=== PATIENT | male | born 1960 | race Caucasian/White ===

== ENCOUNTER → 2023-03-28 13:36 | Outpatient (REF) | payer OTHER, SELFPAY | LOC: RAD 13:36 | PROVIDERS: ATTENDING PHYSICIAN Internal Medicine Cardiovascular Disease; FAMILY PHYSICIAN Internal Medicine; REFERRING PHYSICIAN Specialist | DX: R09.89 Other specified symptoms and signs involving the circulatory and respiratory systems (principal) | CPT/HCPCS: 93975 ==

== ENCOUNTER 2023-06-20 08:05 | Outpatient (REF) | payer OTHER, SELFPAY ==
[2023-06-20] VITALS (18 sets, daily range): BP systolic 67–163; BP diastolic 70–101
[2023-06-20 08:35] LABS: % Eosinophils 7.8 % (0-6); % Immature Granulocytes 0.4 % (0-0.5); % Lymphocytes 22.4 % (20.5-51.1); % Monocytes 12.9 % (1.7-9.3); % Neutrophils 55.5 % (42.2-75.2); Absolute Basophils 0.1 10^3/uL (0-0.2); Absolute Eosinophils 0.6 10^3/uL (0-0.7); Absolute Lymphocytes 1.6 10^3/uL (1.2-3.4); Absolute Monocytes 0.9 10^3/uL (0.1-0.6); Absolute Neutrophils 3.9 10^3/uL (1.4-6.5); Hematocrit 39.1 % (39.0-52.0); Hemoglobin 12.6 g/dL (13.0-18.0); Mean Corp Hgb Conc. 32.2 g/dL (33.0-37.0); Mean Corpuscular Hgb 25.8 pg (27.0-31.0); Mean Platelet Volume 10.1 fL (7.4-10.4); Nucleated Red Blood Cells % 0 % (-); Platelet Count 231 10^3/uL (130-400); Red Blood Cell Count 4.89 10^6/uL (4.70-6.10); Red Cell Dist. Width 14.9 % (11.5-14.5); White Blood Cell Count 7.1 10^3/uL (4.8-10.8)
[2023-06-20 08:46] LABS: Blood Urea Nitrogen 48 mg/dl (9-20); Calcium 9.2 mg/dl (8.4-10.2); Carbon Dioxide 27 mmol/L (22-30); Chloride 105 mmol/L (98-107); Glucose 125 mg/dl (70-99); Potassium 4.8 mmol/L (3.5-5.1); Sodium 138 mmol/L (135-145); eGFR 31.32
[2023-06-20] MEDS: CATAPRES 0.100000000000000006 MG PO (08:56)
[2023-06-20] MEDS: NSS (PRESERVATIVE FREE) 0.25 ML IV (09:55)
[2023-06-20] MEDS: ATIVAN 0.5 MG IV (09:55)
[2023-06-20 11:56] LABS: Glucose - Point of Care 155 mg/dl (70-99)
[2023-06-20 13:45] LABS: Glucose - Point of Care 229 mg/dl (70-99)
[2023-06-20 16:00] LABS: Hematocrit 39.2 % (39.0-52.0); Hemoglobin 12.5 g/dL (13.0-18.0)
== END 2023-06-20 17:25 | disposition home or self-care (01) ==
LOC: RADI 08:05
PROVIDERS: Radiology Vascular & Interventional Radiology; ATTENDING PHYSICIAN Specialist; FAMILY PHYSICIAN Internal Medicine
DX: E11.22 Type 2 diabetes mellitus with diabetic chronic kidney disease (principal); R80.9 Proteinuria, unspecified; I12.9 Hypertensive chronic kidney disease with stage 1 through stage 4 chronic kidney disease, or unspecified chronic kidney disease; N18.2 Chronic kidney disease, stage 2 (mild)
CPT/HCPCS: 36415; 50200; 76942; 80048; 82962; 85014; 85018; 85025; 85610; 99152; 99153

== ENCOUNTER 2023-06-26 18:17 | Inpatient (IN) | payer OTHER, SELFPAY ==
[2023-06-26] VITALS (29 sets, daily range): BP systolic 99–154; BP diastolic 64–123; BMI 31.0
[2023-06-26] MEDS: ZOFRAN 4 MG IV (14:04)
[2023-06-26] MEDS: SUBLIMAZE 50 MCG IV ×2 (14:04→20:09)
[2023-06-26 14:13] LABS: % Basophils 0.7 % (0-2); % Eosinophils 4.8 % (0-6); % Immature Granulocytes 0.1 % (0-0.5); % Lymphocytes 27.5 % (20.5-51.1); % Monocytes 10.3 % (1.7-9.3); % Neutrophils 56.6 % (42.2-75.2); Absolute Basophils 0.1 10^3/uL (0-0.2); Absolute Eosinophils 0.3 10^3/uL (0-0.7); Absolute Lymphocytes 1.8 10^3/uL (1.2-3.4); Absolute Monocytes 0.7 10^3/uL (0.1-0.6); Absolute Neutrophils 3.8 10^3/uL (1.4-6.5); Hematocrit 36.3 % (39.0-52.0); Hemoglobin 12.2 g/dL (13.0-18.0); Mean Corp Hgb Conc. 33.6 g/dL (33.0-37.0); Mean Corpuscular Hgb 25.8 pg (27.0-31.0); Mean Corpuscular Volume 76.9 fL (80.0-94.0); Mean Platelet Volume 9.8 fL (7.4-10.4); Nucleated Red Blood Cells % 0 % (-); Platelet Count 290 10^3/uL (130-400); Red Blood Cell Count 4.72 10^6/uL (4.70-6.10); Red Cell Dist. Width 14.5 % (11.5-14.5); White Blood Cell Count 6.7 10^3/uL (4.8-10.8)
--- NOTE | 2023-06-26 14:20 | ED.GENMED ---
History of Present Illness
<Devon Salinas PA-C - Last Filed: 06/26/23 16:09>
General
Chief Complaint: Flank Pain
Source: patient and ambulance crew
Time Seen by Provider: 06/26/23 14:00
Travel History
Have you had any contact with someone who has COVID-19?: No
Do you have any symptoms of coronavirus? Fever > 100 degrees, chills, cough, shortness of breath, sore throat, loss of taste or smell, muscle aches, or headache?: No
History of Present Illness
History of Present Illness:
62-year-old male with past atrial fibrillation, CAD, hypertension, hyperlipidemia, diabetes, chronic kidney disease, status post right renal biopsy from this past Tuesday coming in to the emergency department via EMS for evaluation of sudden pain in
his right flank accompanied with worsening nausea. Due to the severity of pain patient was given 8 mg of morphine and route to the emergency department which she states took his pain from a 10 to about an 8 but still appears quite uncomfortable.
EMS noted diaphoresis and upon arrival to the ER nausea. Patient states following his biopsy he really did not have much pain and that this is different than any pain that he is experienced in the past. Denies any chest pain, shortness of breath,
palpitations, vomiting, bowel changes, urinary symptoms.
Past History
<MARINO Sorenson Last Filed: 06/26/23 16:09>
Past History
ED Past Medical History: Arrthythmia, HTN, Hypercholesterolemia, IDDM, Renal failure (Chronic kidney disease) and Other (Severe COVID with arts, respiratory failure, cardiogenic shock January 2022)
ED Past Surgical History: Appendectomy and Orthopedic
Social History
Tobacco: Non-smoker
Alcohol: Other
Drug: None
Personal:
Living: with family
Employment: Other
Family History
Family History: Other
Review of Systems
<MARINO Sorenson Filed: 06/26/23 16:09>
Review of Systems
All Other Systems: ROS reviewed and negative except as documented in HPI and ROS
Phy Exam
<Devon Salinas PA-C - Last Filed: 06/26/23 16:09>
Physical Exam
Physical Exam:
GENERAL: Alert , appears in significant pain, grunting but speaking full sentences, diaphoretic
EYE: clear conjunctiva
NECK: Supple
ENT: o/p clr, mmm.
CARDIAC: Regular rate and rhythm .
LUNGS: Clear breath sounds bilaterally, no acute respiratory distress, no wheezes/rales/rhonchi
ABDOMEN: Soft, without focal tenderness, no r/g, no cvat
NEUROLOGICAL: Alert and oriented
SKIN: Warm and dry, skin intact.
MUSCULOSKELETAL: No edema, well perfused.
PSYCH: Normal and appropriate interaction.
Scores
<Devon Salinas PA-C - Last Filed: 06/26/23 16:09>
Heart Failure Risk
Heart Failure Risk Score: Not Applicable
Heart Score for Chest Pain Patients
STEMI patient?: Not applicable
Withdrawal Assessment of Alcohol
Withdrawal Assessment Completed?: Not applicable
Course
<Devon Salinas PA-C - Last Filed: 06/26/23 16:09>
Orders/Labs/Results
Orders:
Orders
06/26/23 13:58
Electrocardiogram (*1) Urgent
Reason for Study: Abdominal Pain
EKG- Treatment ONCE
06/26/23 14:01
Fentanyl Citrate/Pf [Sublimaze] 100 mcg .ROUTE .STK-MED ONE
Ondansetron Injectable [Zofran] 4 mg .ROUTE .STK-MED ONE
06/26/23 14:02
CT Abd/pel Without Iv Or Oral Urgent
Comment:
Reason For Exam: right flank pain, recent biopsy
Fentanyl Citrate/Pf [Sublimaze] 50 mcg IV NOW STA
Ondansetron Injectable [Zofran] 4 mg IV NOW STA
06/26/23 14:05
CMP [Comprehensive Metabolic Panel] Urgent
Complete Blood Count/With Diff Urgent
06/26/23 14:27
PTT Urgent
Prothrombin Time Urgent
06/26/23 15:18
0.9% Sodium Chloride 1000 ml [Nss] 1,000 ml IV BOLUS
06/26/23 15:53
Prothrombin Complex(Pcc),Human [Kcentra] 2,184 unit Empty Viaflex Container 100 ml [Viaflex Empty Container] 80 ml IV NOW
06/26/23 15:54
Fentanyl Citrate/Pf [Sublimaze] 50 mcg IV NOW STA
Abnormal Lab Results
06/26/23 06/26/23
14:05 16:00
Hgb 12.2 L g/dL
(13.0-18.0)
Hct 36.3 L %
(39.0-52.0)
MCV 76.9 L fL
(80.0-94.0)
MCH 25.8 L pg
(27.0-31.0)
Absolute Monos (auto) 0.7 H 10^3/uL
(0.1-0.6)
Monocytes % 10.3 H %
(1.7-9.3)
Carbon Dioxide 21 L mmol/L
(22-30)
BUN 40 H mg/dl
(9-20)
Creatinine 2.4 H mg/dL
(0.7-1.3)
Glucose 172 H mg/dl
(70-99)
POC Glucose 186 H mg/dl
(70-99)
06/26/23 14:05
06/26/23 14:05
Vital Signs
Initial and Last Documented VS:
Initial Vital Signs
Pulse Resp Pulse Ox
82 24 100
06/26/23 13:59 06/26/23 13:59 06/26/23 13:59
Last Documented Vital Signs
Temp Pulse Resp BP Pulse Ox
97.7 F 77 13 99/73 99
06/26/23 15:58 06/26/23 15:58 06/26/23 15:58 06/26/23 15:58 06/26/23 15:58
Auto Design Checker consulted with Physician
Auto Design Checker consulted with physician?: Yes
Name of Physician Consulted: Adam
<Santana Cheung, - Last Filed: 06/26/23 15:19>
Orders/Labs/Results
Orders:
Orders
06/26/23 13:58
Electrocardiogram (*1) Urgent
Reason for Study: Abdominal Pain
EKG- Treatment ONCE
06/26/23 14:01
Fentanyl Citrate/Pf [Sublimaze] 100 mcg .ROUTE .STK-MED ONE
Ondansetron Injectable [Zofran] 4 mg .ROUTE .STK-MED ONE
06/26/23 14:02
CT Abd/pel Without Iv Or Oral Urgent
Comment:
Reason For Exam: right flank pain, recent biopsy
Fentanyl Citrate/Pf [Sublimaze] 50 mcg IV NOW STA
Ondansetron Injectable [Zofran] 4 mg IV NOW STA
06/26/23 14:05
CMP [Comprehensive Metabolic Panel] Urgent
Complete Blood Count/With Diff Urgent
06/26/23 14:27
PTT Urgent
Prothrombin Time Urgent
06/26/23 15:18
0.9% Sodium Chloride 1000 ml [Nss] 1,000 ml IV BOLUS
06/26/23 15:53
Prothrombin Complex(Pcc),Human [Kcentra] 2,184 unit Empty Viaflex Container 100 ml [Viaflex Empty Container] 80 ml IV NOW
06/26/23 15:54
Fentanyl Citrate/Pf [Sublimaze] 50 mcg IV NOW STA
Abnormal Lab Results
06/26/23 06/26/23
14:05 16:00
Hgb 12.2 L g/dL
(13.0-18.0)
Hct 36.3 L %
(39.0-52.0)
MCV 76.9 L fL
(80.0-94.0)
MCH 25.8 L pg
(27.0-31.0)
Absolute Monos (auto) 0.7 H 10^3/uL
(0.1-0.6)
Monocytes % 10.3 H %
(1.7-9.3)
Carbon Dioxide 21 L mmol/L
(22-30)
BUN 40 H mg/dl
(9-20)
Creatinine 2.4 H mg/dL
(0.7-1.3)
Glucose 172 H mg/dl
(70-99)
POC Glucose 186 H mg/dl
(70-99)
06/26/23 14:05
06/26/23 14:05
Vital Signs
Initial and Last Documented VS:
Initial Vital Signs
Pulse Resp Pulse Ox
82 24 100
06/26/23 13:59 06/26/23 13:59 06/26/23 13:59
Last Documented Vital Signs
Temp Pulse Resp BP Pulse Ox
97.7 F 77 13 99/73 99
06/26/23 15:58 06/26/23 15:58 06/26/23 15:58 06/26/23 15:58 06/26/23 15:58
<Devon Salinas PA-C - Last Filed: 06/26/23 16:09>
MDM/Problems Addressed
Differential Diagnosis Includes:
Retroperitoneal hemorrhage, kidney stone, dissection, AAA, postoperative pain
MDM/Problems Addressed:
62-year-old male presenting emergency department for evaluation of right-sided flank pain of sudden onset. Pain minimally controlled with 8 mg of morphine. Now nauseous. Will treat with 50 mcg of fentanyl and 4 mg Zofran. Patient will be sent
for a stat CT to rule out any retroperitoneal bleed. Reassessment and disposition following
Chronic conditions affecting care: Previous abdomnial surgery
Acute Exacerbation and/or Progression of Chronic Illness: Previous abdomnial surgery
<Devon Salinas PA-C - Last Filed: 06/26/23 16:09>
*Pulse Oximetry
Patient hypoxic: no
*Critical Care Note
Total Time (30-74mins, 75-104mins- exclusive of procedures): 30
comment:
Critical care statement: A total of 30 minutes of critical care time was provided for this patient. This includes management of unstable vital signs, evaluation of the patient at bedside, reviewing the patient's pertinent medical records, discussion
with consultants, review of old EKGs and review of pertinent medical records. This time with separate from time utilized to perform the aforementioned documented procedures
Data Reviewed
Review of Other/Old Records Reveals: Labs and Records
<Devon Salinas PA-C - Last Filed: 06/26/23 16:09>
Patient Management
Discussion with other providers: Hospitalist, Litigation Specialist and Radiologist
Escalation/DeEscalation of care consider admission/obs:
Spoke to radiology about initial CT of concern for right-sided retroperitoneal bleeding. They do agree with our assessment. We spoke to interventional radiology who reviewed the scans and will come to the ER to see the patient. We are holding on
CTA of the abdomen and pelvis due to patient's renal function. Decision was ultimately made to reverse patient's Eliquis with [facility]. Hospitalist team is aware and accepts for continued evaluation and treatment. Patient is remaining
hemodynamically stable.
ED Attending Note
<Devon Salinas PA-C - Last Filed: 06/26/23 16:09>
-
Portions of this chart may have been created with voice recognition software.� Occasional wrong word or��sound alike� substitutions may have occurred due to the inherent limitations of voice recognition software.
<Santana Cheung DO - Last Filed: 06/26/23 15:19>
ED Attending Note
Patient seen and examined by attending physician: Yes
I performed the substantive portion of visit, reviewed & personally made and approve the management plan that is documented in note by myself or ALBIN.: Yes
Discharge Plan
Departure
Patient Disposition: Admit
Date of Disposition: 06/26/23
Time of Disposition: 15:48
Presentation/result/management discussed w/ accepting MD/: Hospitalist
Discharge Problem:
Retroperitoneal hemorrhage
Prescriptions:
No Action
rosuvastatin 20 MG tablet
20 mg PO DAILY@0600
SPS (with sorbitol) 15-20 gram/60 mL suspension
60 ml PO HS
Novolin 70/30 U-100 Insulin 100 unit/mL (70-30) Suspension
17 - 18 sliding scale dose SC DAILY@0600,1800
furosemide 40 mg tablet
40 mg PO DAILY@0600
Eliquis 5 mg Tablet
5 mg PO BID@0600,1800
lisinopril 20 mg tablet
20 mg PO DAILY@0600
metoprolol succinate 100 mg tablet extended release 24 hr
100 mg PO BID@0600,1800
hydralazine 100 mg tablet
100 mg PO TID@0600,1400,2200
lisinopril 10 mg tablet
10 mg PO DAILY@0600
sertraline 50 mg Tablet
25 mg PO DAILY@0600
isosorbide mononitrate 30 mg tablet extended release 24 hr
30 mg PO DAILY@0600
Referrals:
Victor Hugo Sparks MD [Family Provider] -
Interventions
Interventions:
*Risk Screen - Suicide Last Done: 06/26/23 14:41
*General Assessment Last Done: 06/26/23 14:41
*Neglect/Abuse Screening Last Done: 06/26/23 14:41
*ED COVID-19 Vaccine History Last Done: 06/26/23 13:59
VK-Jeyzuz-Tdzklxzcxi Assessment Last Done: 06/26/23 14:42
ED-Male Genitourinary Assessment Last Done: 06/26/23 14:45
Discharge Date and Time
Print Language: TAJIK
[2023-06-26 14:26] LABS: ALT (SGPT) 19 U/L (0-50); AST (SGOT) 21 U/L (17-59); Alkaline Phosphatase 84 U/L (38-126); Blood Urea Nitrogen 40 mg/dl (9-20); Carbon Dioxide 21 mmol/L (22-30); Chloride 104 mmol/L (98-107); Glucose 172 mg/dl (70-99); Potassium 3.7 mmol/L (3.5-5.1); Sodium 136 mmol/L (135-145); Total Bilirubin 0.2 mg/dl (0.2-1.3); Total Protein 6.4 g/dl (6.3-8.2); eGFR 29.76
[2023-06-26 14:52] LABS: INR 1.11; PT 14.1 Sec (11.4-14.6)
[2023-06-26] MEDS: NSS 1000 IV ×2 (15:30→20:09)
[2023-06-26 16:02] LABS: Glucose - Point of Care 186 mg/dl (70-99)
[2023-06-26] MEDS: KCENTRA 80 UNIT IV (16:02)
--- NOTE | 2023-06-26 16:02 | HPS.HSE ---
Family Physician
-
Family Physician: Victor Hugo Sparks
Chief Complaint
-
Flank Pain
History of Present Illness
62-year-old male who had an renal biopsy done Tuesday. Patient restarted Eliquis on Tuesday. He was doing well until today when he took a shower and was getting ready to go visit his father in the hospital but he had sudden pain in the
flank more than 10 out of 10 in intensity and he came to the hospital. He denies any physical exercise or any trauma.
Medical History
Past Medical History
Past Medical History: Reports Other
Additional Past Medical History:
Atrial fibrillation, coronary disease,-, hyperlipidemia, chronic any disease, psoriatic arthritis
Past Surgical History: Reports Other
Additional Past Surgical History:
Right femur surgery with a lenora, dental implant, carpal tunnel surgery bilaterally, appendectomy, bilateral cataract surgery, renal biopsy 05/2023, CABG
Social History
Tobacco: Former Smoker
Alcohol: Occasional
Drug: None
Personal:
Living: With Family
Employment: Disabled
Family History
Family History: CAD (Father) and Cancer (Colon cancer in mother)
Allergies / Home Medications
Allergies reflects when Allergies were last updated in [facility].
Home Medications with original date entered in [facility]
Allergy/Medication List:
Allergies
Allergy/AdvReac Type Severity Reaction Status Date / Time
infliximab [From Remicade] Allergy Stroke-like Verified 06/26/23 14:00
sxs with
lesion on
brain
Home Medications
rosuvastatin 20 mg tablet 20 mg PO DAILY@0600 High cholesterol 07/09/20
sodium polystyrene sulfonate 15 gram-sorbitol 20 gram/60 mL oral susp (SPS (with sorbitol)) 60 ml PO HS CORRECT POTASSIUM 02/15/22
insulin human U-100 NPH-regulr 70-30 mix 100 unit/mL subcutaneous susp (Novolin 70/30 U-100 Insulin) 17 - 18 sliding scale dose SC DAILY@0600,1800 Diabetes 06/22/22
furosemide 40 mg tablet 40 mg PO DAILY@0600 Fluid Retention/Swelling 07/16/22
apixaban 5 mg tablet (Eliquis) 5 mg PO BID@0600,1800 06/17/23
hydralazine 100 mg tablet 100 mg PO TID@0600,1400,2200 06/26/23
isosorbide mononitrate 30 mg tablet,extended release 24 hr 30 mg PO DAILY@0600 06/26/23
lisinopril 10 mg tablet 10 mg PO DAILY@0600 taken w/ 20mg= 30mg 06/26/23
lisinopril 20 mg tablet 20 mg PO DAILY@0600 taken w/ 10mg = 30mg 06/26/23
metoprolol succinate 100 mg tablet,extended release 24 hr 100 mg PO BID@0600,1800 06/26/23
sertraline 50 mg tablet 25 mg PO DAILY@0600 06/26/23
Review of Systems
-
A 12 point ROS was completed and negative except as noted: Yes
Respiratory: Denies Hemoptysis or Trouble Breathing
Cardiac: Denies Chest Pain
Abdomen/GI: Reports Abdominal Pain
Physical Exam
Vital Signs
Vital Signs
Temp Pulse Resp BP Pulse Ox
97.7 F 77 13 99/73 99
06/26/23 15:58 06/26/23 15:58 06/26/23 15:58 06/26/23 15:58 06/26/23 15:58
Physical Exam
General: Conversant; No Appears in Distress
Respiratory: Clear
Cardiac: S1/S2 and Regular Rhythm
GI: Soft and Tender (right flank)
Genito-urinary: Costovertebral angle tend (right)
Skin: Warm
Neuro: Nonfocal/grossly intact
Laboratory Results
-
06/26/23 14:05
06/26/23 14:05
Laboratory Results
PT 14.1 Sec (11.4-14.6) 06/26/23 14:27
INR 1.11 06/26/23 14:27
APTT 28.0 Sec (23.4-35.0) 06/26/23 14:27
Total Bilirubin 0.2 mg/dl (0.2-1.3) 06/26/23 14:05
AST 21 U/L (17-59) 06/26/23 14:05
ALT 19 U/L (0-50) 06/26/23 14:05
Alkaline Phosphatase 84 U/L (38-126) 06/26/23 14:05
Impression/Plan
-
IMPRESSION/PLAN:
# Perinephric hemorrhage
CT Reviewed by me -Bleeding around right kidney
Patient status post renal biopsy on 06/20/2023
Eliquis was restarted on 06/21/2023
Bleeding exacerbated by Eliquis
Pain started today.
Kcentra ordered by ER
Hemoglobin stable, hemodynamically stable
Interventional radiology contacted by ER may need arteriogram/embolization
Follow H&H every 6 hours
Admit to ICU tonight for monitoring overnight
# Chronic kidney disease followed by Dr. Bonilla
Consult nephrology
Follow creatinine post arteriogram
# Hypertension-blood pressure on the low side therefore hold hydralazine, Imdur, lisinopril, metoprolol
# Diabetes-patient uses insulin 70/30 7218 units twice daily at home
10 units twice daily ordered Accu-Cheks and sliding scale coverage
#Atrial fibrillation-restart metoprolol as soon as blood pressure stable
Hold Eliquis secondary to bleeding
# Hyperlipidemia-continue rosuvastatin
# Coronary artery disease with CABG in June 2022
Continue statin. Hold lisinopril, metoprolol, Imdur as above
ECHO-07/16/22-normal biventricular size and systolic function. EF 55 to 65%. Mild concentric LVH. Stage II diastolic dysfunction
# Psoriatic arthritis
# SCDs for DVT prophylaxis
# Full code
Discussed with ER attending and PA at bedside
Discussed with ER nursing
Discussed with patient's at bedside
Critical care time 45 minutes
--- NOTE | 2023-06-26 17:40 | W.PN.UPDATE ---
Update Note
Progress Note Update
- R renal arteriogram
- No pseudoaneurysm or active areas of bleeding identified. Abnormal parenchymal blush in the lower pole of the right kidney, likely subcapsular hematoma
- No intervention performed. Pt vitals and disposition good throughout the case
- Calcified plaque within the R [employer]. Closure device not used. R leg flat for 5 hours
--- NOTE | 2023-06-26 18:31 | PTCARENOTE ---
Assumed care of pt at 1815 after report received from Lang RN. Pt awake and resting quietly on IR table s/p procedure. Pt reports chronic type discomfort mid lower back as well as Rt sided lower back 'ache' rates 04/30. Rt femoral site checked w/ IR
nurse. Site soft and w/o ecchymosis noted. Dressing d/i. Pt provided frequent reminders of strict bedrest orders w/ Rt limb kept straight and head on pillow. Pt verbalized understanding. 'I had a cardiac cath before'. Pt transferred from IR table
onto ICU bed. ICU nuclear monitoring technician applied and pt transported to [id number]. Pt denies CP/SOB. No distress noted. Pt c/o thirst. Diet orders clarified w/ Dr Price. Call tangela w/in pt reach. HOB flat and bed placed in slight reverse-trendelenberg. Site
and pulse checks as documented.
[2023-06-26 19:00] LABS: Hematocrit 31.6 % (39.0-52.0); Hemoglobin 10.7 g/dL (13.0-18.0)
[2023-06-26 19:12] LABS: Magnesium 1.9 mg/dl (1.6-2.3)
--- NOTE | 2023-06-26 20:00 | PTCARENOTE ---
Resumed care of pt laying in bed AAOx3 with at bedside. Pt reports back pain 8/ due to inability to move and MD order to lay flat for 5 hours. Pt with chronic back pain. PRN Pain medication administered as ordered. HR in the 90's in NSR with
BBB on the monitor. POX 96% on RA. Lungs clear. + bowel, round obese abd. Pt using urinal when needed to void. Right groin site C/D/I. Vascular checks as documented. Palpable peripheral pulses present. Left AC int infusing NSS@50ml/hr. Pt tolerating
clear liquid diet. Knee high seq in place. Will continue to monitor.
[2023-06-26] MEDS: SENOKOT 8.59999999999999964 MG PO (20:10)
[2023-06-26] MEDS: DILAUDID 0.25 MG IV (20:10)
[2023-06-26 22:06] LABS: Glucose - Point of Care 175 mg/dl (70-99)
--- NOTE | 2023-06-26 23:00 | PTCARENOTE ---
Pt HOB elevated. 5 hours of laying flat post procedure is now over. Pt repositioned per comfort. Right groin site remains C/D/I. Pulses palpable. No signs of bleeding noted. HR now in the low 100's ST on the monitor. No other changes in assessment
noted at this time. Will continue to monitor.
[2023-06-27] VITALS (21 sets, daily range): BP systolic 111–171; BP diastolic 65–111; BMI 31.7
[2023-06-27 00:37] LABS: Hematocrit 28.3 % (39.0-52.0); Hemoglobin 9.6 g/dL (13.0-18.0)
--- NOTE | 2023-06-27 04:00 | PTCARENOTE ---
Pt sleeping intermittently t/o the night. No issues to report. Pt reports pain at tolerable level. Some slight abd tenderness, otherwise denies pain. HR in the 90's in NSR on the monitor. Right groin site as documented. IVF infusing as ordered. Will
continue to monitor.
[2023-06-27 04:44] LABS: Hematocrit 27.4 % (39.0-52.0); Mean Corp Hgb Conc. 32.8 g/dL (33.0-37.0); Mean Corpuscular Hgb 26.1 pg (27.0-31.0); Mean Corpuscular Volume 79.4 fL (80.0-94.0); Platelet Count 199 10^3/uL (130-400); Red Blood Cell Count 3.45 10^6/uL (4.70-6.10); Red Cell Dist. Width 14.6 % (11.5-14.5); White Blood Cell Count 8.8 10^3/uL (4.8-10.8)
[2023-06-27 05:08] LABS: Blood Urea Nitrogen 49 mg/dl (9-20); Calcium 8.1 mg/dl (8.4-10.2); Carbon Dioxide 22 mmol/L (22-30); Chloride 105 mmol/L (98-107); Estimated Creatinine Clearance 31 ml/min; Glucose 175 mg/dl (70-99); Potassium 4.6 mmol/L (3.5-5.1); Sodium 133 mmol/L (135-145); eGFR 23.72
[2023-06-27] MEDS: ZOLOFT 25 MG PO (05:37)
[2023-06-27 07:55] LABS: Glucose - Point of Care 168 mg/dl (70-99)
[2023-06-27] MEDS: MIRALAX 17 GRAMS PO (08:12)
[2023-06-27] MEDS: SENOKOT 8.59999999999999964 MG PO ×2 (08:12→19:11)
[2023-06-27] MEDS: NOVOLOG MIX 70/30 FLEXPEN 10 UNITS SC (08:28)
[2023-06-27] MEDS: NOVOLOG FLEXPEN-MODERATE RESISTANCE 1 UNITS SC ×2 (08:28→12:00)
[2023-06-27 08:38] LABS: Iron 51 ug/dl (49-181)
--- NOTE | 2023-06-27 08:41 | W.CON.NEPH ---
Consultation
-
Date/Time Consultation Requested: 06/27/2023 7:00 AM
Date/Time Consultation Performed: 06/27/2023 8:45 AM
Requesting Provider: Kaden
Performing Provider: Dr. Headley
Reason for Consultation: CKD stage IV
Medical History
-
Chief Complaint: CKD stage 4
History of Present Illness:
The patient is a 62-year-old male with a past medical history of chronic kidney disease stage IV (2.3-2.9) and underlying proteinuria who underwent renal biopsy this past Tuesday. The patient had been anticoagulated chronically with Eliquis due to
chronic atrial fibrillation which was withheld during the procedure. He does have a history of psoriatic arthritis and is undergoing previous Remicade infusion. Postbiopsy he was doing well until yesterday when he developed sudden right flank pain
and presented to the hospital. On presentation to the hospital his hemoglobin remained stable at 12.2 with a creatinine within his baseline at 2.4. Subsequent imaging via CAT scan noted a large amount of perinephric stranding displacing into the
right hepatic lobe anteriorly consistent with severe right perinephric hematoma. A renal arterial gram was then obtained by interventional radiology which did not reveal pseudoaneurysm or active extravasation. The patient was admitted to the ICU
for further monitoring in the setting of his right renal hematoma. His hemoglobin on admission was at 12.2 and subsequently now dropped to 9.
Past Medical History
Atrial fibrillation on chronic Eliquis
Hypertension
Chronic kidney disease stage IV with underlying proteinuria ~2.5
Coronary artery disease
Dyslipidemia
Depression
Diabetes
History of congestive heart failure with preserved ejection fraction
Psoriatic arthritis
History of right femur surgery with lenora and placement history of appendectomy CABG
Social History
Tobacco: Former Smoker
Alcohol: Occasional
Family History
Coronary artery disease in father colon cancer mother
No chronic kidney
Allergies / Home Medications
Allergy/AdvReac Type Severity Reaction Status Date / Time
infliximab [From Remicade] Allergy Stroke-like Verified 06/26/23 14:00
sxs with
lesion on
brain
�Medication �Instructions �Recorded �Confirmed �Type
rosuvastatin 20 mg tablet 20 mg PO DAILY@0600 High 07/09/20 06/26/23 History
cholesterol
sodium polystyrene sulfonate 15 60 ml PO HS CORRECT POTASSIUM 02/15/22 06/26/23 History
gram-sorbitol 20 gram/60 mL oral
susp (SPS (with sorbitol))
insulin human U-100 NPH-regulr 17 - 18 sliding scale dose SC 06/22/22 06/26/23 History
70-30 mix 100 unit/mL subcutaneous DAILY@0600,1800 Diabetes
susp (Novolin 70/30 U-100 Insulin)
furosemide 40 mg tablet 40 mg PO DAILY@0600 Fluid 07/16/22 06/26/23 History
Retention/Swelling
apixaban 5 mg tablet (Eliquis) 5 mg PO BID@0600,1800 06/17/23 06/26/23 History
hydralazine 100 mg tablet 100 mg PO TID@0600,1400,2200 06/26/23 06/26/23 History
isosorbide mononitrate 30 mg 30 mg PO DAILY@0600 06/26/23 06/26/23 History
tablet,extended release 24 hr
lisinopril 10 mg tablet 10 mg PO DAILY@0600 taken w/ 20mg= 06/26/23 06/26/23 History
30mg
lisinopril 20 mg tablet 20 mg PO DAILY@0600 taken w/ 10mg 06/26/23 06/26/23 History
= 30mg
metoprolol succinate 100 mg 100 mg PO BID@0600,1800 06/26/23 06/26/23 History
tablet,extended release 24 hr
sertraline 50 mg tablet 25 mg PO DAILY@0600 06/26/23 06/26/23 History
Review of Systems
-
History Source: Patient
All other systems: Negative unless noted
: Flank Pain (Right flank pain)
Physical Exam
Vital Signs
Vital Signs
Temp Pulse Resp BP Pulse Ox
98.6 F 85 22 137/84 98
06/27/23 07:27 06/27/23 07:45 06/27/23 07:45 06/27/23 07:45 06/27/23 07:45
Lab Results
WBC 8.8 10^3/uL (4.8-10.8) 06/27/23 04:33
RBC 3.45 10^6/uL (4.70-6.10) L 06/27/23 04:33
Plt Count 199 10^3/uL (130-400) D 06/27/23 04:33
Sodium 133 mmol/L (135-145) L 06/27/23 04:33
Potassium 4.6 mmol/L (3.5-5.1) 06/27/23 04:33
Chloride 105 mmol/L (98-107) 06/27/23 04:33
Carbon Dioxide 22 mmol/L (22-30) 06/27/23 04:33
BUN 49 mg/dl (9-20) H 06/27/23 04:33
Creatinine 2.9 mg/dL (0.7-1.3) H 06/27/23 04:33
eGFR 23.72 06/27/23 04:33
Glucose 175 mg/dl (70-99) H 06/27/23 04:33
Calcium 8.1 mg/dl (8.4-10.2) L 06/27/23 04:33
Albumin 4.0 g/dl (3.5-5.0) 06/26/23 14:05
Physical Exam
General: AOx3, Nontoxic , NAD
HEENT: PERRL, EOMI, Anicteric, Conjunctivae Clear, Ear/Nose Intact, Hearing Normal, Oropharynx Clear/Moist, Dentition Intact, Facial Symmetry, Neck Supple, Neck: Trachea Midline, No JVD and No Thyromegaly, no Bruits
Respiratory: Clear to auscultation bilaterally with normal lung exersion
Cardiac: S1/S2 and Regular Rate/Rhythm
Breast: Deferred by me
Abdomen: Soft, Nontender, Nondistended, Normal Bowel Sounds and No Hepatosplenomegaly
Rectal: Deferred by Provider
Genito-urinary: No Costovertebral Tenderness
Extremities: No Clubbing, No Cyanosis and No Edema
Skin: No Rash or open lesions
Neuro: Nonfocal/Grossly Intact, CN II-XII (Intact) and Strength (Musculoskeletal exam 5 out of 5 both upper and lower extremities)
Hematologic/Lymphatic: No Cervical Lymphadenopathy, No Submandibular Lymphadenopathy and No Supraclavicular Lymphadenopathy
Psych: Mood/afflect pleasant, Insight/judgement good and Appropriate
Vascular: plus 2 pedal and radial pulses
Data Reviewed
-
Radiology: Image Personally Visualized and interpreted (Chest x-ray personally reviewed no congestive heart failure no pneumonic process CABG wires noted)
CT Scan: Report Reviewed by me (Abdomen and pelvis CT reviewed right renal hematoma)
Labs: Labs Reviewed by me (BMP CBC )
Old Records: Reviewed (Creatinine 2.4 from 06/26/2023)
Assessment/Plan
-
Impression:
History of chronic kidney disease stage IV with underlying proteinuria status post renal biopsy on 06/20/23
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
Right renal hematoma status post renal artery angiogram without intervention
Anemia post renal biopsy
Hypertension
Congestive heart failure with preserved ejection
History of coronary artery disease and CABG
Diabetes
Atrial fibrillation on chronic Eliquis
Psoriatic arthritis
Plan:
-Provide blood products as needed if hemoglobin continues to drop or patient becomes hemodynamically unstable
-If hemoglobin precipitously drops further we will repeat noncontrast CT to evaluate hematoma
-MORE held
-Follow-up H&H and
-Eliquis currently held in setting of renal hemorrhage
-PRN labetalol, for htn
-Creatinine currently at baseline and remains non oliguric without hematuria
-Can withhold further IV fluids once current bag completed
[2023-06-27 08:47] LABS: Percent Saturation 21 % (20-50); Total Iron Binding Capacity 239 ug/dl (261-462)
--- NOTE | 2023-06-27 08:58 | PTCARENOTE ---
Update with data support analyst at bedside. Update patients at bedside. Follow up assessment, vital signs ongoing and as documented. Dr Ocampo (nephrology) at bedside with patient and family. Follow ongoing lab trends and orders. Await hospitalist
team to follow diet, mobility,and follow up plan of cares. Continue with teaching, supportive cares and unit based protocols. Hourly rounds ongoing with frequent patient safety checks, call honeycutt in use. Patient and family verbalizes satisfaction of
cares, and verbalizes understanding of am plan of cares.
--- NOTE | 2023-06-27 09:35 | PTCARENOTE ---
Update with hospitalist team and nephrology. Follow up diet, early mobility and lab trends. Follow up plan of cares with patient and at bedside. Will continue with ongoing teaching. Trend labs as ordered. Assessment ongoing.
[2023-06-27 09:50] LABS: Glycohemoglobin (HgbA1c) 6.8 % (4.0-5.6)
--- NOTE | 2023-06-27 10:45 | W.PN.HOSP.TC ---
Today's Communication/Plan
-
Watch hemoglobin
Started diet
Assessment / Plan
Assessment / Plan
62-year-old admitted because of right flank pain and bleeding. Pain much better today. IR could not identify a bleeding source or embolize yesterday.
On examination awake alert oriented
Cardiovascular system S1-S2 appreciated
Mild right lumbar area discomfort
Bowel sounds present
No pedal edema
FIRE INSPECTOR nonfocal
CT-right perinephric hematoma without acute hemorrhage. No free air no collection to suggest abscess. Mild prominent external iliac lymph nodes likely reactive
# Perinephric hemorrhage
Patient status post renal biopsy on 06/20/2023
Eliquis was restarted on 06/21/2023
Bleeding exacerbated by Eliquis-holding Eliquis
Kcentra ordered by ER
Hemoglobin drop noted. Anemia secondary to acute blood loss from above
Interventional radiology did not do any intervention yesterday
Follow H&H every 6 hours
Await next hemoglobin to decide if the patient needs blood or repeat imaging
# Chronic kidney disease followed by Dr. Bonilla
Renal biopsy showed FSGS-diabetes/hypertension
Consult nephrology
Follow creatinine post arteriogram-slightly high today
# Hypertension-hydralazine, Imdur, lisinopril, metoprolol-all on hold
Labetalol as needed ordered by nephrology
# Diabetes-patient uses insulin 70/30 17-18 units twice daily at home
15 units twice daily ordered
#Atrial fibrillation-restart metoprolol as soon as blood pressure stable
Hold Eliquis secondary to bleeding
Currently on labetalol
# Hyperlipidemia-continue rosuvastatin
# Coronary artery disease with CABG in June 2022
Continue statin. Hold lisinopril, metoprolol, Imdur as above
ECHO-07/16/22-normal biventricular size and systolic function. EF 55 to 65%. Mild concentric LVH. Stage II diastolic dysfunction
# Psoriatic arthritis
# SCDs for DVT prophylaxis
# Full code
cc time 31 min
Discussed with nursing at bedside
Discussed with at bedside
Discussed with nephrology at bedside
Discussed with interventional radiology
Anticipated Discharge: > 48 hours
Subjective/Interval History
-
Date of Service: June 27, 2023
Objective Data
-
Labs:
Laboratory Results
06/27/23 06/27/23 06/27/23
00:31 04:33 12:19
WBC 8.8
Hgb 9.6 L 9.0 L Pending
Hct 28.3 L 27.4 L Pending
Plt Count 199 D
Sodium 133 L
Potassium 4.6
Chloride 105
Carbon Dioxide 22
BUN 49 H
Creatinine 2.9 H
Glucose 175 H
Calcium 8.1 L
06/27/23
19:00
WBC
Hgb Pending
Hct
Plt Count
Sodium
Potassium
Chloride
Carbon Dioxide
BUN
Creatinine
Glucose
Calcium
Vital Signs:
Vital Signs
Temp Pulse Resp BP Pulse Ox
98.6 F 108 15 158/85 96
06/27/23 07:27 06/27/23 10:07 06/27/23 10:07 06/27/23 10:07 06/27/23 10:14
I&O
06/26/23 06/27/23 06/28/23
06:59 06:59 06:59
Intake Total 1989 680 / 680
Output Total 450 / 450 225 / 225
Balance 1540 / 1590 455 / 455
--- NOTE | 2023-06-27 11:04 | CM ---
CM following re:discharge planning.
Discussed in Rounds, reviewed pt's chart, met with pt and pt's spouse Alisha at bedside.
Pt is a 62 year old male, admitted with primary dx of Perinephric hemorrhage. Nephrology following.
Pt reports he lives with spouse in a rancher style house, has no children. 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
PCP: Jennifer Wahl
Pharmacy: [facility].
D/C plan: home with anticipated no needs. Spouse to transport at discharge.
CM will follow with discharge plan updates as hospitalization progresses
--- NOTE | 2023-06-27 11:13 | CON.INTV ---
Documented by User: Wilfred Goff MD, Resident 06/27/23 12:45
Consultation
Consultation Request
Date/Time Consultation Requested: 06/26/23 18:26
Date/Time Consultation Performed: 06/27/23 07:00
Requesting Provider: Zulay Price
Medical History
-
Chief Complaint: Perinephric Hematoma
History of Present Illness:
Patient is a 63-year-old male with past medical history of atrial fibrillation on Eliquis, CAD, hypertension, CKD stage IV and underlying proteinuria who underwent right renal biopsy 06/19, presented to the ED for evaluation of sudden pain in his
right flank accompanied with nausea. Post-biopsy he had no complaints until yesterday when he suddenly developed flank pain and presented to the hospital. On presentation to the hospital, patient was afebrile, blood pressure 99/73, pulse 77, O2
sat 99% on room air. On presentation hemoglobin remained stable at 12.2 now dropped to 9, creatinine within baseline at 2.4. Evaluation with CT scan Abd/pelvis in the ED on presentation showed severe right perinephric hematoma without evidence
suggesting acute hemorrhage. we are asked to follow from a critical care standpoint in the setting of his right renal hematoma.
Past Medical History
Past Medical History: Other (Atrial fibrillation on chronic Eliquis, hypertension, CKD stage IV with underlying proteinuria, CAD with CABG June 2022, dyslipidemia, depression, diabetes, HFpEF, psoriatic arthritis)
Past Surgical History: Other (Right femoral surgery with lenora, dental implants, carpal tunnel surgery bilaterally, appendectomy, bilateral cataract surgery, renal biopsy 05/2023, CABG)
Social History
Tobacco: Former Smoker
Alcohol: Occasional
Drug: None
Personal:
Living: With Family
Employment: Disabled
Family History
Family History: CAD (Father) and Cancer (Colon cancer remote)
Allergies / Home Medications
Allergies
Allergy/AdvReac Type Severity Reaction Status Date / Time
infliximab [From Remicade] Allergy Stroke-like Verified 06/26/23 14:00
sxs with
lesion on
brain
Home Medications
�Medication �Instructions �Recorded �Confirmed �Last Taken �Type
rosuvastatin 20 mg tablet 20 mg PO DAILY@0600 High 07/09/20 06/26/23 06/26/23 06:00 History
cholesterol
sodium polystyrene sulfonate 15 60 ml PO HS CORRECT POTASSIUM 02/15/22 06/26/23 06/25/23 History
gram-sorbitol 20 gram/60 mL oral
susp (SPS (with sorbitol))
insulin human U-100 NPH-regulr 17 - 18 sliding scale dose SC 06/22/22 06/26/23 06/26/23 06:00 History
70-30 mix 100 unit/mL subcutaneous DAILY@0600,1800 Diabetes
susp (Novolin 70/30 U-100 Insulin)
furosemide 40 mg tablet 40 mg PO DAILY@0600 Fluid 07/16/22 06/26/23 06/26/23 06:00 History
Retention/Swelling
apixaban 5 mg tablet (Eliquis) 5 mg PO BID@0600,1800 Blood Clot 06/17/23 06/26/23 06/26/23 06:00 History
Prevention/Tx
hydralazine 100 mg tablet 100 mg PO TID@0600,1400,2200 Blood 06/26/23 06/26/23 06/26/23 06:00 History
Pressure
isosorbide mononitrate 30 mg 30 mg PO DAILY@0600 Blood Pressure 06/26/23 06/26/23 06/26/23 06:00 History
tablet,extended release 24 hr
lisinopril 10 mg tablet 10 mg PO DAILY@0600 taken w/ 20mg= 06/26/23 06/26/23 06/26/23 06:00 History
30mg
lisinopril 20 mg tablet 20 mg PO DAILY@0600 taken w/ 10mg 06/26/23 06/26/23 06/26/23 06:00 History
= 30mg
metoprolol succinate 100 mg 100 mg PO BID@0600,1800 Heart 06/26/23 06/26/23 06/26/23 06:00 History
tablet,extended release 24 hr Disease/Condition
sertraline 50 mg tablet 25 mg PO DAILY@0600 Mental 06/26/23 06/26/23 06/26/23 06:00 History
Health/Anxiety
Review of Systems
-
History Source: Patient
All other systems: Negative unless noted (Except as documented)
: Flank Pain (Right flank pain)
Vitals / Labs / Diagnostic Testing
Vital Signs
Temp Pulse Resp BP Pulse Ox
98.6 F 108 15 158/85 96
06/27/23 07:27 06/27/23 10:07 06/27/23 10:07 06/27/23 10:07 06/27/23 10:14
Lab Data
06/27/23 04:33
Laboratory Results
06/26/23
14:27
PT 14.1
INR 1.11
APTT 28.0
Diagnostic Testing:
Physical Exam
-
HEENT: Normocephalic, Anicteric and Other (No JVD, neck supple, facial symmetry, no thyromegaly)
Cardiovascular: S1/S2 and Regular Rhythm
Respiratory: Clear (Clear to auscultation bilaterally)
GI: Soft, Non Distended and Tender (Right flank tenderness)
Neurology: Awake, Alert, Oriented and AO x 3
Skin: Other (No rashes)
General: Other (No apparent distress)
Assessment
-
63-year-old male with past medical history CKD stage IV with underlying proteinuria status post right renal biopsy 06/19 presents to the ED 06/25 for sudden right flank pain
History of CKD stage IV with underlying proteinuria s/p renal biopsy on 06/20/2023
CT right spine of hematoma without acute hemorrhage
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
Atrial fibrillation on Eliquis use
Conditions present prior to admission
Hypertension
Diabetes
Psoriatic arthritis
Hx of CAD status post CABG
CHF with preserved ejection fraction
Hyperlipidemia
Assessment and plan;
Patient status post renal biopsy on 06/20/2023
Eliquis was restarted on 06/21/2023, now being held
CT evaluation showed right perinephric hematoma without acute hemorrhage
On presentation hemoglobin 12.0 which has now dropped to 9.0
Anemia secondary to acute blood loss
IR was consulted yesterday, right renal hematoma status post renal angiogram without intervention
Continue to hold Eliquis
Monitor H&H every 6 hours
Transition protocol if hemoglobin continues to drop
Repeat imaging noncontrast CT to evaluate hematoma if hemoglobin drops further
Nephrology on board
Hold MORE inhibitors
Labetalol as needed for hypertension
Creatinine currently at baseline, monitor creatinine
Continue statin

Documented by User: Dorina Moreau MD 06/27/23 12:56
Assessment
-
63-year-old male with past medical history CKD stage IV with underlying proteinuria status post right renal biopsy 06/19 presents to the ED 06/25 for sudden right flank pain
History of CKD stage IV with underlying proteinuria s/p renal biopsy on 06/20/2023
CT right spine of hematoma without acute hemorrhage
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
Atrial fibrillation on Eliquis use
Conditions present prior to admission
Hypertension
Diabetes
Psoriatic arthritis
Hx of CAD status post CABG
CHF with preserved ejection fraction
Hyperlipidemia
Assessment and plan;
Patient status post renal biopsy on 06/20/2023
Eliquis was restarted on 06/21/2023, now being held
CT evaluation showed right perinephric hematoma without acute hemorrhage
On presentation hemoglobin 12.0 which has now dropped to 9.0
Anemia secondary to acute blood loss
IR was consulted yesterday, right renal hematoma status post renal angiogram without intervention
Continue to hold Eliquis
Monitor H&H every 6 hours
Transition protocol if hemoglobin continues to drop
Repeat imaging noncontrast CT to evaluate hematoma if hemoglobin drops further
Nephrology on board
Hold MORE inhibitors
Labetalol as needed for hypertension
Creatinine currently at baseline, monitor creatinine
Continue statin

The above reviewed independently by myself. Patient seen and examined with resident
Patient with history of coronary disease, bypass surgery, atrial fibrillation on chronic anticoagulation, chronic kidney disease, status post renal biopsy
Patient imaging with confirmed renal capsular hemorrhage, no evidence of significant bleeding per arteriogram, interventional radiology correspondence reviewed
Patient states flank pain is improved
Remains hemodynamically stable
Social history, family history, past medical history, allergies and review of systems as above
Of note, patient may have history of sleep apnea
Physical exam notable for mild lower abdominal discomfort otherwise no flank pain, no costovertebral angle tenderness. Chest exam is clear
Data reviewed
A/P
As above
Monitor hemoglobin
Monitor electrolytes, creatinine
No Shipley catheter at this time
Hold MORE inhibitor
Resume outpatient antihypertensive therapy. Appreciate nephrology input
Maintain adequate IV access
Consider repeat imaging in the next 24 hours
DVT prophylaxis: Sequential teds. Hold pharmacological prophylaxis at this time
Reviewed with critical care nursing, respiratory care, pharmacy, case management
Reviewed with nephrology
Will follow
TCCT 31 min
[2023-06-27 11:49] LABS: Glucose - Point of Care 193 mg/dl (70-99)
[2023-06-27] MEDS: TRANDATE 10 MG IV ×2 (12:01→21:13)
[2023-06-27] MEDS: TYLENOL 650 MG PO (12:20)
[2023-06-27 12:30] LABS: Hematocrit 27.6 % (39.0-52.0); Hemoglobin 9.1 g/dL (13.0-18.0)
[2023-06-27 12:31] LABS: Ferritin 31.1 ng/ml (17.9-464.0)
[2023-06-27 12:45] LABS: Vitamin B12 547 pg/ml (239-931)
[2023-06-27 17:53] LABS: Glucose - Point of Care 205 mg/dl (70-99)
[2023-06-27] MEDS: NOVOLOG MIX 70/30 FLEXPEN 15 UNITS SC (17:53)
[2023-06-27] MEDS: NOVOLOG FLEXPEN-MODERATE RESISTANCE 3 UNITS SC (17:54)
[2023-06-27 18:20] LABS: Hemoglobin 8.6 g/dL (13.0-18.0)
--- NOTE | 2023-06-27 20:00 | PTCARENOTE ---
Resumed care of pt ambulating to bed from bathroom with assisting pt. Pt weak but stable on feet. HR in the the low 100's with activity, 90's with rest, in NSR with BBB and PVC's. POX 96% on RA. Lungs dec at bases. RICKS. + bowel, round abd. Pt
using the urinal/ ambulating to bathroom when needed. Palpable peripheral pulses present. Left AC int capped. Right groin site intact. NO issues to report at this time. Will continue to monitor.
--- NOTE | 2023-06-27 21:18 | PTCARENOTE ---
Pt hypertensive BP 170/79. PRN Labetalol administered as ordered. Pt resting in bed. Denies any complaints. Will continue to monitor.
[2023-06-27 21:42] LABS: Glucose - Point of Care 165 mg/dl (70-99)
[2023-06-28] VITALS (19 sets, daily range): BP systolic 119–190; BP diastolic 68–95; BMI 31.7
--- NOTE | 2023-06-28 00:12 | PTCARENOTE ---
Pt resting comfortably. BP improved now 152/77. Pt denies any complaints. No changes in assessment noted at this time. Will continue to monitor.
--- NOTE | 2023-06-28 01:42 | PTCARENOTE ---
Pt awake and unable to sleep. Pt now sitting in chair. Denies any complaints of pain. Will continue to monitor.
[2023-06-28] MEDS: TRANDATE 10 MG IV ×2 (04:26→14:24)
[2023-06-28 04:38] LABS: Hematocrit 26.2 % (39.0-52.0); Hemoglobin 8.6 g/dL (13.0-18.0); Mean Corp Hgb Conc. 32.8 g/dL (33.0-37.0); Mean Corpuscular Hgb 26.1 pg (27.0-31.0); Mean Corpuscular Volume 79.4 fL (80.0-94.0); Platelet Count 187 10^3/uL (130-400); Red Cell Dist. Width 14.6 % (11.5-14.5); White Blood Cell Count 9.5 10^3/uL (4.8-10.8)
[2023-06-28 05:15] LABS: Blood Urea Nitrogen 44 mg/dl (9-20); Carbon Dioxide 21 mmol/L (22-30); Chloride 107 mmol/L (98-107); Estimated Creatinine Clearance 38 ml/min; Glucose 137 mg/dl (70-99); Potassium 4.5 mmol/L (3.5-5.1); Sodium 136 mmol/L (135-145); eGFR 29.76
--- NOTE | 2023-06-28 05:52 | PTCARENOTE ---
BP elevated overnight. PRN Medication administered as ordered. Pt now back to bed resting, denies any complaints. Will continue to monitor.
[2023-06-28] MEDS: APRESOLINE 10 MG IV (06:00)
[2023-06-28] MEDS: ZOLOFT 25 MG PO (06:01)
[2023-06-28] MEDS: NOVOLOG FLEXPEN-MODERATE RESISTANCE SC (07:46)
[2023-06-28] MEDS: NOVOLOG MIX 70/30 FLEXPEN 15 UNITS SC (07:47)
[2023-06-28] MEDS: MIRALAX 17 GRAMS PO (07:47)
[2023-06-28] MEDS: TYLENOL 650 MG PO (07:52)
[2023-06-28] MEDS: SENOKOT 8.59999999999999964 MG PO ×2 (07:52→19:56)
--- NOTE | 2023-06-28 08:34 | W.PN.NEPH.PH ---
Today's Communication / Plan
-
add back alexia
follow up hgb at noon
Assessment/Plan
-
Impression:
History of chronic kidney disease stage IV with underlying proteinuria status post renal biopsy on 06/20/23
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
Right renal hematoma status post renal artery angiogram without intervention
Anemia post renal biopsy
Hypertension
Congestive heart failure with preserved ejection
History of coronary artery disease and CABG
Diabetes
Atrial fibrillation on chronic Eliquis
Psoriatic arthritis
Plan:
-Provide blood products as needed if hemoglobin continues to drop or patient becomes hemodynamically unstable
-Hgb dropping to 8.6, recheck hgb at noon
-would repeat noncontrast CT to evaluate hematoma if hgb continues to drop
-Eliquis currently held in setting of renal hemorrhage
-PRN labetalol and hydralazine, for htn, will add back lisinopril today
-Creatinine currently at baseline and remains non oliguric without hematuria
-
-
Date of Service: June 28, 2023
CC / HPI / ROS
-
Chief Complaint:
CKD stage IV
Status post kidney hemorrhage following biopsy
History of Present Illness:
Hemodynamically stable, blood pressure elevated
Creatinine down to 2.4
Hemoglobin stable at 8 point
Review of Systems:
No chest pain or shortness of breath, no flank pain
No hematuria
Some anterior abdominal discomfort
Labs
-
Labs:
WBC 9.5 10^3/uL (4.8-10.8) 06/28/23 04:23
RBC 3.30 10^6/uL (4.70-6.10) L 06/28/23 04:23
Hgb 8.6 g/dL (13.0-18.0) L 06/28/23 04:23
Hct 26.2 % (39.0-52.0) L 06/28/23 04:23
Plt Count 187 10^3/uL (130-400) 06/28/23 04:23
Sodium 136 mmol/L (135-145) 06/28/23 04:23
Potassium 4.5 mmol/L (3.5-5.1) 06/28/23 04:23
Chloride 107 mmol/L (98-107) 06/28/23 04:23
Carbon Dioxide 21 mmol/L (22-30) L 06/28/23 04:23
BUN 44 mg/dl (9-20) H 06/28/23 04:23
Creatinine 2.4 mg/dL (0.7-1.3) H 06/28/23 04:23
eGFR 29.76 06/28/23 04:23
Glucose 137 mg/dl (70-99) H 06/28/23 04:23
Calcium 9.0 mg/dl (8.4-10.2) 06/28/23 04:23
Albumin 4.0 g/dl (3.5-5.0) 06/26/23 14:05
Physical Exam
-
Vital Signs:
Vital Signs
Temp Pulse Resp BP Pulse Ox
98.3 F 95 13 175/68 95
06/28/23 04:00 06/28/23 06:45 06/28/23 06:45 06/28/23 06:44 06/28/23 06:45
Cardiovascular:: Regular rate and rhythm
Respiratory:: Bilateral: CTA
Lung Excursion:: Normal
Abdomen:: Nontender and Soft
Bowel Sounds:: Normal
Extremity Edema:: None: Bilateral:
Shipley Catheter: No
--- NOTE | 2023-06-28 10:14 | W.PN.INTV ---
Documented by User: Wilfred Goff MD, Resident 06/28/23 10:27
Today's Communication / Plan
Recommendations
Repeat hemoglobin at noon
Resume lisinopril
Monitor H&H
Assessment
-
63-year-old male with past medical history CKD stage IV with underlying proteinuria status post right renal biopsy 06/19 presents to the ED 06/25 for sudden right flank pain
Acute anemia secondary to below
History of CKD stage IV with underlying proteinuria s/p renal biopsy on 06/20/2023
CT right spine of hematoma without acute hemorrhage
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
Atrial fibrillation on Eliquis use
Conditions present prior to admission
Hypertension
Diabetes
Psoriatic arthritis
Hx of CAD status post CABG
CHF with preserved ejection fraction
Hyperlipidemia
Assessment and plan;
Anemia secondary to acute blood loss
Remains hemodynamically stable
Reports flank pain has improved
CT evaluation 06/25 showed right perinephric hematoma without acute hemorrhage
On presentation hemoglobin 12.0, multiple repeat hemoglobin stable at 8.6
Recheck hemoglobin at noon
Monitor hemoglobin
Continue to hold Eliquis
Transfusion protocol if hemoglobin drops less than 7
Nephrology on board to decide if repeat imaging needed
Repeat imaging noncontrast CT to evaluate hematoma if hemoglobin drops further
Resume lisinopril
Labetalol as needed for hypertension
Creatinine currently at baseline, monitor creatinine
Continue statin
Subjective Dataa
Subjective Data
Date of Service:
Date of Service: June 28, 2023
Chief Complaint: Bone Glue Maker Follow Up
Subjective:
Overnight events; BP elevated overnight, hypertensive at 170/79 labetalol administered which vitals improvement
Objective Data
Data Reviewed
Vital Signs / I&O / Oxygen:
Vital Signs
Temp Pulse Resp BP Pulse Ox
98.7 F 100 21 151/78 96
06/28/23 09:03 06/28/23 09:03 06/28/23 09:03 06/28/23 09:03 06/28/23 09:06
Intake and Output
06/27/23 06/28/23 06/29/23
06:59 06:59 06:59
Intake Total 1989 1720 / 172 240 / 240
Output Total 450 / 450 1924 / 1924
Balance 1540 / 1590 -205 / -205 240 / 240
SaO2 96
Physical Exam
HEENT: Normocephalic, Anicteric and Other (No JVD, neck supple, facial symmetry, no thyromegaly)
Cardiovascular: S1-S2 and Regular Rhythm
Respiratory: Clear and Other (Clear to auscultation bilaterally, no wheezes, no crackles, no rhonchi)
GI: Soft, Non Distended and Other (Mild lower abdominal discomfort, no flank pain, no costovertebral angle tenderness)
Neurology: Awake, Alert, Oriented and AO x 3
Skin: Warm
Labs/Micro/Reports
Lab Data
06/28/23 09:00

Documented by User: Dorina Moreau MD 06/28/23 11:25
Today's Communication / Plan
Recommendations
Repeat hemoglobin at noon
Resume lisinopril
Monitor H&H
Okay to transfer out of ICU. We will sign off. Please call questions
Assessment
-
63-year-old male with past medical history CKD stage IV with underlying proteinuria status post right renal biopsy 06/19 presents to the ED 06/25 for sudden right flank pain
Acute anemia secondary to below
CT abd with perinephric hematoma without acute hemorrhage
History of CKD stage IV with underlying proteinuria s/p renal biopsy on 06/20/2023
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
Atrial fibrillation on Eliquis
currently held
Conditions present prior to admission
Hypertension
Diabetes
Psoriatic arthritis
Hx of CAD status post CABG
CHF with preserved ejection fraction
Hyperlipidemia
Assessment and plan;
Anemia secondary to acute blood loss
Remains hemodynamically stable
Reports flank pain has improved
CT evaluation 06/25 showed right perinephric hematoma without acute hemorrhage
On presentation hemoglobin 12.0, multiple repeat hemoglobin stable at 8.6 (stable for 24 hrs)
Recheck hemoglobin at noon
Monitor hemoglobin as clinically indicated
Continue to hold Eliquis
Transfusion protocol if hemoglobin drops less than 7
Nephrology on board to decide if repeat imaging needed
Repeat imaging noncontrast CT to evaluate hematoma if hemoglobin drops further
Resume lisinopril
Labetalol as needed for hypertension
Creatinine currently at baseline, monitor creatinine
Continue statin
If Hgb stable ok for tx to telemtry
Reviewed with critical care nursing, respiratory care, pharmacy, case management
Reviewed with nephrology

Agree with above. Patient seen and examined independently by myself. Patient without complaints, had minimal lower abdominal discomfort. Hemoglobin is been stable for approximately 24 hours. Hypertension noted
Chest exam is clear, no rebound or guarding, no back tenderness
Data reviewed
Creatinine 2.4, hemoglobin 8.6
A/P
Moving forward, we will continue to monitor hemoglobin as clinically indicated. Remains off anticoagulation
Will need to determine timing of resumption of Eliquis therapy. This will be deferred to nephrology and primary service. Patient is hesitant to restart given risk for persistent bleeding
Resume outpatient MROE inhibitor.
Right groin is intact.
Okay for transfer out of ICU later today. We will sign off. Please call with questions
Objective Data
Physical Exam
Skin: Other (rt groin intact, adequate pulse)
[2023-06-28] MEDS: ZESTRIL 20 MG PO (10:17)
[2023-06-28 10:34] LABS: Hemoglobin 8.3 g/dL (13.0-18.0)
--- NOTE | 2023-06-28 11:16 | PTCARENOTE ---
Updated assessment ongoing and as documented. Review vital sign trends and follow up medication with pharmacy. Follow up new orders with nephrology. In and out at bedside nephrology and hospitalist team. New medications as ordered, follow ongoing
vital sign trends. Continue mobility plan of cares, ambulate room, oob to chair and bathroom minimal assist. Repeat lab trends ongoing. Plan to transfer to [facility] when available. Will follow up 1800 hr labs. Continue with teaching, supportive cares
with patient and family. Review updated plan of cares.
--- NOTE | 2023-06-28 11:45 | W.PN.HOSP.TC ---
Today's Communication/Plan
-
Watch Hb
If drops below 8 will transfuse .
If drops may need a repeat CT
Lisinopril started
If getting transfused needs Lasix with that
? Add BB
Assessment / Plan
Assessment / Plan
62-year-old admitted because of right flank pain and bleeding. Pain much better today. IR could not identify a bleeding source or embolize yesterday.
On examination awake alert oriented
Cardiovascular system S1-S2 appreciated
Mild right lumbar area discomfort
Bowel sounds present
No pedal edema
SECURITIES SALES ASSOCIATE nonfocal
CT-right perinephric hematoma without acute hemorrhage. No free air no collection to suggest abscess. Mild prominent external iliac lymph nodes likely reactive
# Perinephric hemorrhage
Patient status post renal biopsy on 06/20/2023
Eliquis was restarted on 06/21/2023
Bleeding exacerbated by Eliquis-holding Eliquis
Kcentra Given by ER
Hemoglobin drop noted. Anemia secondary to acute blood loss from above
Interventional radiology did not do any intervention
Follow H&H
Await next hemoglobin to decide if the patient needs blood or repeat imaging
# Chronic kidney disease followed by Dr. Bonilla
Renal biopsy showed FSGS-diabetes/hypertension
Consult nephrology
Follow creatinine post arteriogram-slightly high today
# Hypertension-hydralazine, Imdur, lisinopril, metoprolol
Labetalol as needed ordered by nephrology
Lisinopril restarted
# Diabetes-patient uses insulin 70/30 17-18 units twice daily at home
16 units twice daily ordered
#Atrial fibrillation-restart metoprolol as soon as blood pressure stable
Hold Eliquis secondary to bleeding
Currently on labetalol
Pt and aware of stroke risks.
# Hyperlipidemia-continue rosuvastatin
# Coronary artery disease with CABG in June 2022
Continue statin. Hold lisinopril, metoprolol, Imdur as above
ECHO-07/16/22-normal biventricular size and systolic function. EF 55 to 65%. Mild concentric LVH. Stage II diastolic dysfunction
# Psoriatic arthritis
# SCDs for DVT prophylaxis
# Full code
Discussed with nursing at bedside
Discussed with at bedside
Discussed with Aircraft Rigging And Controls Mechanic
Blood consent obtained.
Time 52 min
Anticipated Discharge: 24 - 48 hours
Subjective/Interval History
-
Date of Service: June 28, 2023
Objective Data
-
Labs:
Laboratory Results
06/28/23 06/28/23 06/28/23
04:23 09:00 10:27
WBC 9.5
Hgb 8.6 L 8.3 L
Hct 26.2 L
Plt Count 187
Sodium 136 Cancelled
Potassium 4.5 Cancelled
Chloride 107 Cancelled
Carbon Dioxide 21 L Cancelled
BUN 44 H Cancelled
Creatinine 2.4 H Cancelled
Glucose 137 H Cancelled
Calcium 9.0 Cancelled
06/28/23
18:00
WBC
Hgb Pending
Hct Pending
Plt Count
Sodium
Potassium
Chloride
Carbon Dioxide
BUN
Creatinine
Glucose
Calcium
Vital Signs:
Vital Signs
Temp Pulse Resp BP Pulse Ox
98.7 F 108 15 172/87 96
06/28/23 09:03 06/28/23 10:45 06/28/23 10:45 06/28/23 10:17 06/28/23 09:06
I&O
06/27/23 06/28/23 06/29/23
06:59 06:59 06:59
Intake Total 1989 1720 / 172 240 / 240
Output Total 450 / 450 1925 / 1925
Balance 1540 / 1590 -205 / -205 240 / 240
[2023-06-28] MEDS: NOVOLOG FLEXPEN-MODERATE RESISTANCE 1 UNITS SC ×2 (11:57→16:44)
[2023-06-28 12:07] LABS: Glucose - Point of Care 193 mg/dl (70-99)
[2023-06-28] MEDS: LASIX 40 MG PO (12:30)
--- NOTE | 2023-06-28 13:02 | PTCARENOTE ---
100% of lunch taken. Patient ambulate room then icu length of reyes and return to bed. Continue with teaching and support. Hospitalist update consent, follow up labs as ordered. Continue post lasix input output trends and vital sign trends ongoing.
Continue rounds, teaching and support as needed. Resting in chair at this assessment.
--- NOTE | 2023-06-28 13:58 | CM ---
CM following re:discharge planning.
Discussed in Rounds, reviewed pt's chart, met with pt. Pt is aware he will be transferred to a different unit and possibly will be discharged tomorrow. IMM reviewed placed on chart, pt has a copy.
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
D/C plan: home with anticipated no needs. Spouse to transport at discharge.
CM will follow with discharge plan updates as hospitalization progresses
--- NOTE | 2023-06-28 13:59 | PTCARENOTE ---
Update report with [facility] team. Await bed availability. Patient return to bed post ambulation. Continues to diureses post lasix will continue with trends and update.
--- NOTE | 2023-06-28 15:56 | PTCARENOTE ---
1530: Patient arrived to 2S. Full head to toe assessment completed. R leg neurovascular assessment completed. Band aid clean, dry and intact. Bed in lowest position and call honeycutt within reach.
[2023-06-28 16:36] LABS: Glucose - Point of Care 192 mg/dl (70-99)
[2023-06-28] MEDS: NOVOLOG MIX 70/30 FLEXPEN 16 UNITS SC (16:43)
[2023-06-28 18:32] LABS: Hematocrit 24.3 % (39.0-52.0); Hemoglobin 8.3 g/dL (13.0-18.0)
[2023-06-28 22:10] LABS: Glucose - Point of Care 156 mg/dl (70-99)
[2023-06-29 05:22] LABS: Hemoglobin 8.9 g/dL (13.0-18.0)
[2023-06-29] MEDS: ZOLOFT 25 MG PO (05:37)
[2023-06-29] MEDS: LASIX 40 MG PO (05:37)
[2023-06-29 05:46] LABS: Blood Urea Nitrogen 43 mg/dl (9-20); Calcium 9.1 mg/dl (8.4-10.2); Carbon Dioxide 23 mmol/L (22-30); Chloride 103 mmol/L (98-107); Estimated Creatinine Clearance 41 ml/min; Glucose 165 mg/dl (70-99); Potassium 5.3 mmol/L (3.5-5.1); Sodium 135 mmol/L (135-145); eGFR 33.04
[2023-06-29 06:00] VITALS: BMI 30.4
[2023-06-29 06:06] VITALS: BP 162/88
[2023-06-29 06:50] VITALS: BP 168/101
[2023-06-29 07:30] VITALS: BP 150/94
[2023-06-29 07:31] LABS: Glucose - Point of Care 192 mg/dl (70-99)
[2023-06-29] MEDS: ZESTRIL 20 MG PO (07:31)
[2023-06-29] MEDS: SENOKOT PO (07:31)
[2023-06-29] MEDS: MIRALAX PO (07:31)
[2023-06-29] MEDS: NOVOLOG MIX 70/30 FLEXPEN 16 UNITS SC (07:32)
[2023-06-29] MEDS: NOVOLOG FLEXPEN-MODERATE RESISTANCE 1 UNITS SC (07:32)
--- NOTE | 2023-06-29 10:42 | PTCARENOTE ---
0708: Dr. Zulay Price notified of the patients potassium this AM being 5.3. No new orders at this time. Care ongoing.
[2023-06-29 11:32] LABS: Glucose - Point of Care 212 mg/dl (70-99)
[2023-06-29] MEDS: NOVOLOG FLEXPEN-MODERATE RESISTANCE 3 UNITS SC (11:46)
--- NOTE | 2023-06-29 11:54 | W.PN.HOSP.TC ---
Today's Communication/Plan
-
? Restart metoprolol and Hydralazine
Pt asking to go home as he cant sleep here
Will need to hold Eliquis atleast for a week before it can be restarted.
Assessment / Plan
Assessment / Plan
62-year-old admitted because of right flank pain and bleeding. Ambulating the halls. No pain, mild discomfort only.
On examination awake alert oriented
Cardiovascular system S1-S2 appreciated
Mild right lumbar area discomfort
Bowel sounds present
No pedal edema
SHOE PACKER nonfocal
CT-right perinephric hematoma without acute hemorrhage. No free air no collection to suggest abscess. Mild prominent external iliac lymph nodes likely reactive
# Perinephric hemorrhage
Patient status post renal biopsy on 06/20/2023
Eliquis was restarted on 06/21/2023
Bleeding exacerbated by Eliquis-holding Eliquis
Kcentra Given by ER
Hemoglobin drop noted. Anemia secondary to acute blood loss from above
Interventional radiology did not do any intervention
Follow H&H
Hb stable
# Chronic kidney disease followed by Dr. Bonilla
Renal biopsy showed FSGS-diabetes/hypertension
Creat better
# Hypertension-hydralazine, Imdur, lisinopril, metoprolol as OP
Labetalol as needed ordered by nephrology Lisinopril restarted
Texted to see if other meds can be restarted.
# Diabetes-patient uses insulin 70/30 17-18 units twice daily at home
17 units twice daily ordered
#Atrial fibrillation-restart metoprolol as soon as blood pressure stable
He is in SR now
Hold Eliquis secondary to bleeding
Currently on labetalol
Pt and aware of stroke risks.
I have updated also -His OP Cards.
# Hyperlipidemia-continue rosuvastatin
# Coronary artery disease with CABG in June 2022
Continue statin. Hold lisinopril, metoprolol, Imdur as above
ECHO-07/16/22-normal biventricular size and systolic function. EF 55 to 65%. Mild concentric LVH. Stage II diastolic dysfunction
# Psoriatic arthritis
# SCDs for DVT prophylaxis
# Full code
Discussed with nursing at bedside
REached out to Nephrology
Anticipated Discharge: Within 24 hours
Subjective/Interval History
-
Date of Service: June 29, 2023
Objective Data
-
Labs:
Laboratory Results
06/29/23
04:28
Hgb 8.9 L
Sodium 135
Potassium 5.3 H
Chloride 103
Carbon Dioxide 23
BUN 43 H
Creatinine 2.2 H
Glucose 165 H
Calcium 9.1
Vital Signs:
Vital Signs
Temp Pulse Resp BP Pulse Ox
98.0 F 107 16 150/94 95
06/29/23 06:50 06/29/23 06:50 06/29/23 06:50 06/29/23 07:30 06/29/23 06:50
I&O
06/28/23 06/29/23 06/30/23
06:59 06:59 06:59
Intake Total 1720 / 1720 1320 / 1320
Output Total 5 / 1925 2700 / 2700
Balance -205 / -205 -1380 / -1380
--- NOTE | 2023-06-29 12:32 | W.PN.NEPH.PH ---
Today's Communication / Plan
-
ok for d/c
see plan
Assessment/Plan
-
Impression:
History of chronic kidney disease stage IV with underlying proteinuria status post renal biopsy on 06/20/23
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
Right renal hematoma status post renal artery angiogram without intervention
Anemia post renal biopsy
Hypertension
Congestive heart failure with preserved ejection
History of coronary artery disease and CABG
Diabetes
Atrial fibrillation on chronic Eliquis
Psoriatic arthritis
Plan:
hb stable at 8.9
suspect no active bleeding and pain significantly better since admit
if hb decreases may need repeat imaging
BP chronically are high 160 range per pt
ACEI resumed, h/o hyperkalemia which reportedly controlled with SPS daily
ok to resume hydralazine and BB
wilder remains on hold
reviewed with pt that he strictly should avoid gym or strenuous activity, no lifting
He insists of leaving today and has f/u with Dr Bonilla on Tuesday
he will need cbc, bmp check on Tuesday and Tuesday
-
-
Date of Service: June 29, 2023
CC / HPI / ROS
-
Chief Complaint:
CKD stage IV
Status post kidney hemorrhage following biopsy
History of Present Illness:
Hemodynamically stable, blood pressure elevated
Creatinine down to 2.2
Hemoglobin up at 8.9
non oliguric with out loja
Review of Systems:
No chest pain or shortness of breath, no flank pain
No hematuria
Some anterior abdominal discomfort
Labs
-
Labs:
WBC 9.5 10^3/uL (4.8-10.8) 06/28/23 04:23
RBC 3.30 10^6/uL (4.70-6.10) L 06/28/23 04:23
Hgb 8.9 g/dL (13.0-18.0) L 06/29/23 04:28
Hct 24.3 % (39.0-52.0) L 06/28/23 18:27
Plt Count 187 10^3/uL (130-400) 06/28/23 04:23
Sodium 135 mmol/L (135-145) 06/29/23 04:28
Potassium 5.3 mmol/L (3.5-5.1) H 06/29/23 04:28
Chloride 103 mmol/L (98-107) 06/29/23 04:28
Carbon Dioxide 23 mmol/L (22-30) 06/29/23 04:28
BUN 43 mg/dl (9-20) H 06/29/23 04:28
Creatinine 2.2 mg/dL (0.7-1.3) H 06/29/23 04:28
eGFR 33.04 06/29/23 04:28
Glucose 165 mg/dl (70-99) H 06/29/23 04:28
Calcium 9.1 mg/dl (8.4-10.2) 06/29/23 04:28
Albumin 4.0 g/dl (3.5-5.0) 06/26/23 14:05
Physical Exam
-
Vital Signs:
Vital Signs
Temp Pulse Resp BP Pulse Ox
98.0 F 107 16 150/94 95
06/29/23 06:50 06/29/23 06:50 06/29/23 06:50 06/29/23 07:30 06/29/23 06:50
Cardiovascular:: Regular rate and rhythm
Respiratory:: Bilateral: CTA
Lung Excursion:: Normal
Abdomen:: Nontender (no cva tenderness) and Soft
Extremity Edema:: None: Bilateral:
Loja Catheter: No
[2023-06-29] MEDS: LOKELMA 10 GRAM PO (12:59)
--- NOTE | 2023-06-29 14:03 | W.PN.UPDATE ---
Update Note
Progress Note Update
D/W Renal
REsatrted antihypertensives.
Pt doesnt want to stay another night here
Will need to hold Eliquis 10 days as OP
Rpt Hb and to restart as OP
Script for BMP given
Discharge coordination time 37 min
--- NOTE | 2023-06-29 14:18 | W.DS.TRANS ---
Addendum entered and electronically signed by Zulay Price MD 06/29/23 16:06:
Dictation- [id number]
Original Note:
DC Summary - Traffic Ii Manager
-
Discharge Instructions:
Sleep Apnea Risk High
Discharge Diagnosis/Procedures Right perinephric hematoma, chronic kidney
disease, hypertension, diabetes, atrial
fibrillation, hyperlipidemia, coronary artery
disease, psoriatic arthritis
Diet Diabetic, Carb Controlled,2 Gram Sodium
Activity No strenuous activity
Additional Activity No strenuous activity no weightlifting until
cleared by film sound engineer
Driving Restrictions No driving for 1 week
Blood Work BMP on 07/01/2023 and 07/04/2023
Instructions:
Stand-Alone Forms:
Changes to Home Medications: Yes
Discharge Medications:
DC Medications w/original date entered in [facility]
rosuvastatin 20 mg tablet 20 mg PO DAILY@0600 High cholesterol 07/09/20
sodium polystyrene sulfonate 15 gram-sorbitol 20 gram/60 mL oral susp (SPS (with sorbitol)) 60 ml PO HS CORRECT POTASSIUM 02/15/22
insulin human U-100 NPH-regulr 70-30 mix 100 unit/mL subcutaneous susp (Novolin 70/30 U-100 Insulin) 17 - 18 sliding scale dose SC DAILY@0600,1800 Diabetes 06/22/22
furosemide 40 mg tablet 40 mg PO DAILY@0600 Fluid Retention/Swelling 07/16/22
apixaban 5 mg tablet (Eliquis) 5 mg PO BID@0600,1800 Blood Clot Prevention/Tx 06/17/23
hydralazine 100 mg tablet 100 mg PO TID@0600,1400,2200 Blood Pressure 06/26/23
isosorbide mononitrate 30 mg tablet,extended release 24 hr 30 mg PO DAILY@0600 Blood Pressure 06/26/23
lisinopril 10 mg tablet 10 mg PO DAILY@0600 taken w/ 20mg= 30mg 06/26/23
lisinopril 20 mg tablet 20 mg PO DAILY@0600 taken w/ 10mg = 30mg 06/26/23
metoprolol succinate 100 mg tablet,extended release 24 hr 100 mg PO BID@0600,1800 Heart Disease/Condition 06/26/23
sertraline 50 mg tablet 25 mg PO DAILY@0600 Mental Health/Anxiety 06/26/23
polyethylene glycol 3350 17 gram oral powder packet (HealthyLax) 17 g PO DAILY Constipation #0 ea 06/29/23
sennosides 8.6 mg tablet (Senna Laxative) 8.6 mg PO HS Constipation #14 tabs 06/29/23
Home Medication Changes
new
polyethylene glycol 3350 17 gram oral powder packet (HealthyLax) 17 g PO DAILY Constipation #0 ea 06/29/23
sennosides 8.6 mg tablet (Senna Laxative) 8.6 mg PO HS Constipation #14 tabs 06/29/23
Pending Results: No
[2023-06-29] MEDS: APRESOLINE 100 MG PO (14:22)
[2023-06-29 14:38] VITALS: BP 152/96
--- NOTE | 2023-06-29 16:20 | CM ---
CM reviewed chart and noted dc order
Bedside meeting with pt and spouse
No dc needs noted
IMM verbally reviewed- copy provided
Discharge Disposition- home no needs
== END 2023-06-29 17:36 | disposition home or self-care (01) | DRG 920 ==
LOC: 2 SOUTH 18:17
PROVIDERS: Nurse Practitioner Primary Care; Physician Assistant Medical; Radiology Diagnostic Radiology; Student in an Organized Health Care Education/Training Program; ADMITTING PHYSICIAN Hospitalist; EMERGENCY PHYSICIAN Emergency Medicine; FAMILY PHYSICIAN Internal Medicine; OTHER PHYSICIAN Internal Medicine Critical Care Medicine; OTHER PHYSICIAN Specialist
PROC: B4161ZZ Fluoroscopy of Right Renal Artery using Low Osmolar Contrast (ICD-10-PCS; 2023-06-26)
PROC: 30283B1 Transfusion of Nonautologous 4-Factor Prothrombin Complex Concentrate into Vein, Percutaneous Approach (ICD-10-PCS; 2023-06-26)
DX: N99.840 Postprocedural hematoma of a genitourinary system organ or structure following a genitourinary system procedure (principal); D62 Acute posthemorrhagic anemia; D68.32 Hemorrhagic disorder due to extrinsic circulating anticoagulants; I13.0 Hypertensive heart and chronic kidney disease with heart failure and stage 1 through stage 4 chronic kidney disease, or unspecified chronic kidney disease; I50.32 Chronic diastolic (congestive) heart failure; N18.4 Chronic kidney disease, stage 4 (severe); I48.20 Chronic atrial fibrillation, unspecified; I25.10 Atherosclerotic heart disease of native coronary artery without angina pectoris; E11.22 Type 2 diabetes mellitus with diabetic chronic kidney disease; L40.50 Arthropathic psoriasis, unspecified; Y84.8 Other medical procedures as the cause of abnormal reaction of the patient, or of later complication, without mention of misadventure at the time of the procedure; Y78.0 Diagnostic and monitoring radiological devices associated with adverse incidents; Y92.9 Unspecified place or not applicable; E78.00 Pure hypercholesterolemia, unspecified; F32.A Depression, unspecified; Z86.16 Personal history of COVID-19; Z79.01 Long term (current) use of anticoagulants; Z87.891 Personal history of nicotine dependence; Z95.1 Presence of aortocoronary bypass graft; Z80.0 Family history of malignant neoplasm of digestive organs; Z82.49 Family history of ischemic heart disease and other diseases of the circulatory system; Z88.8 Allergy status to other drugs, medicaments and biological substances
CPT/HCPCS: 36251; 71045; 74176; 75726; 76937; 80048; 80053; 82607; 82728; 82962; 83036; 83540; 83550; 83735; 85014; 85018; 85025; 85027; 85610; 85730; 86850; 86900; 86901; 93005; 96361; 96374; 96375; 99152; 99153; 99291; C1769; J7168

== ENCOUNTER 2023-08-10 20:56 | Inpatient (IN) | payer OTHER, SELFPAY ==
[2023-08-10 16:58] VITALS: BP 165/90
[2023-08-10 17:32] VITALS: BMI 30.7
[2023-08-10 18:18] VITALS: BP 170/73
[2023-08-10 18:20] LABS: % Basophils 0.3 % (0-2); % Immature Granulocytes 0.4 % (0-0.5); % Lymphocytes 6.8 % (20.5-51.1); % Monocytes 10.1 % (1.7-9.3); % Neutrophils 81.4 % (42.2-75.2); Absolute Basophils 0.1 10^3/uL (0-0.2); Absolute Eosinophils 0.2 10^3/uL (0-0.7); Absolute Immature Granulocytes 0.1 10^3/uL (0-0.05); Absolute Monocytes 1.5 10^3/uL (0.1-0.6); Absolute Neutrophils 11.8 10^3/uL (1.4-6.5); Hematocrit 27.2 % (39.0-52.0); Mean Corp Hgb Conc. 33.1 g/dL (33.0-37.0); Mean Corpuscular Hgb 24.7 pg (27.0-31.0); Mean Corpuscular Volume 74.7 fL (80.0-94.0); Mean Platelet Volume 9.9 fL (7.4-10.4); Nucleated Red Blood Cells % 0 % (-); Platelet Count 289 10^3/uL (130-400); Red Blood Cell Count 3.64 10^6/uL (4.70-6.10); Red Cell Dist. Width 15.1 % (11.5-14.5); White Blood Cell Count 14.5 10^3/uL (4.8-10.8)
[2023-08-10 18:33] LABS: Lactic Acid 1.3 mmol/L (0.7-2.0)
[2023-08-10 18:40] LABS: ALT (SGPT) 16 U/L (0-50); AST (SGOT) 16 U/L (17-59); Alkaline Phosphatase 84 U/L (38-126); Blood Urea Nitrogen 39 mg/dl (9-20); Carbon Dioxide 20 mmol/L (22-30); Chloride 102 mmol/L (98-107); Estimated Creatinine Clearance 41 ml/min; Glucose 155 mg/dl (70-99); Potassium 4.1 mmol/L (3.5-5.1); Sodium 134 mmol/L (135-145); Total Bilirubin 0.6 mg/dl (0.2-1.3); Total Protein 6.5 g/dl (6.3-8.2); eGFR 33.04
[2023-08-10] MEDS: VANCOCIN 200 IV (18:47)
[2023-08-10] MEDS: MAXIPIME 2000 MG IV (18:47)
[2023-08-10 19:04] VITALS: BP 169/78
[2023-08-10] MEDS: TYLENOL 1000 MG PO (19:17)
--- NOTE | 2023-08-10 19:19 | ED.GENMED ---
History of Present Illness
General
Chief Complaint: Cough
Source: patient and spouse
Time Seen by Provider: 08/10/23 17:27
Travel History
Have you had any contact with someone who has COVID-19?: No
Do you have any symptoms of coronavirus? Fever > 100 degrees, chills, cough, shortness of breath, sore throat, loss of taste or smell, muscle aches, or headache?: No
History of Present Illness
History of Present Illness:
62-year-old male who presents with cough and shortness of breath. Also has a little bit of sore throat. Patient was recently admitted with a retroperitoneal hemorrhage and I did see him on the presentation. Patient states that he at rest feels
okay but with any ambulation feels very winded. No hemoptysis. No abdominal pain. Does state that he has not fully recovered from his recent hospitalization but has been exercising. Former smoker
Past History
Past History
ED Past Medical History: Arrthythmia, HTN, Hypercholesterolemia, IDDM, Renal failure (Chronic kidney disease) and Other (Severe COVID with arts, respiratory failure, cardiogenic shock January 2022)
ED Past Surgical History: Appendectomy and Orthopedic
Social History
Tobacco: Non-smoker
Alcohol: Other
Drug: None
Personal:
Living: with family
Employment: Other
Family History
Family History: Other
Phy Exam
Physical Exam
Physical Exam:
CONSTITUTIONAL Patient alert and oriented to person, place and time. Well-appearing. Vital signs reviewed.
HEAD atraumatic, normocephalic.
EYES eyelids normal to inspection, Pupils equally round and reactive to light, Extraocular muscles intact, Conjunctiva normal, Sclera normal.
NECK normal range of motion, Trachea midline, no jugular venous distention.
RESPIRATORY CHEST No respiratory distress noted, Chest expansion equal, rhonchi to L base.
CARDIOVASCULAR regular rate and rhythm, Heart sounds normal.
BACK normal inspection, no obvious deformities
UPPER EXTREMITY range of motion normal, Motor strength normal, no cyanosis, no edema.
LOWER EXTREMITY range of motion normal, Motor strength normal, no cyanosis, no edema.
NEURO Speech normal, No focal motor deficits, Silvestre coma scale 15, Memory normal, Cranial Nerves intact to screening exam.
SKIN skin warm, dry, and normal in color.
PSYCHIATRIC patient oriented to person place and time, Normal affect.
Course
Orders/Labs/Results
Orders:
Orders
08/10/23 17:04
Chest [CR Chest - 2 Views ] Urgent
Comment:
Reason For Exam: productive cough/sob
08/10/23 18:10
Complete Blood Count/With Diff Urgent
Comprehensive Metabolic Panel Urgent
Lactic Acid Q4H
Comment: CANCEL 2nd LACTIC ACID IF 1st LACTIC ACID IS LESS THAN 2
Blood Culture Q30M
DOYLE Source: Blood/Venous
Specimen Description:
Blood Culture Q30M
DOYLE Source: Blood/Venous
Specimen Description:
08/10/23 18:34
Cefepime HCl [Maxipime] 2,000 mg IV NOW STA
Vancomycin 1 Gram/200 ml [Vancocin] 1 gram in 200 ml IV NOW
08/10/23 19:14
Acetaminophen [Tylenol] 1,000 mg PO NOW STA
08/10/23 19:16
Acetaminophen [Tylenol] 1,000 mg .ROUTE .[facility]
Abnormal Lab Results
08/10/23
18:10
WBC 14.5 H 10^3/uL
(4.8-10.8)
RBC 3.64 L 10^6/uL
(4.70-6.10)
Hgb 9.0 L g/dL
(13.0-18.0)
Hct 27.2 L %
(39.0-52.0)
MCV 74.7 L fL
(80.0-94.0)
MCH 24.7 L pg
(27.0-31.0)
RDW 15.1 H %
(11.5-14.5)
Abs Immat Gran (auto) 0.1 H 10^3/uL
(0-0.05)
Absolute Neuts (auto) 11.8 H 10^3/uL
(1.4-6.5)
Absolute Lymphs (auto) 1.0 L 10^3/uL
(1.2-3.4)
Absolute Monos (auto) 1.5 H 10^3/uL
(0.1-0.6)
Neutrophils % 81.4 H %
(42.2-75.2)
Lymphocytes % 6.8 L %
(20.5-51.1)
Monocytes % 10.1 H %
(1.7-9.3)
Sodium 134 L mmol/L
(135-145)
Carbon Dioxide 20 L mmol/L
(22-30)
BUN 39 H mg/dl
(9-20)
Creatinine 2.2 H mg/dL
(0.7-1.3)
Glucose 155 H mg/dl
(70-99)
AST 16 L U/L
(17-59)
08/10/23 18:10
08/10/23 18:10
Vital Signs
Initial and Last Documented VS:
Initial Vital Signs
Temp Pulse Resp BP Pulse Ox
99.6 F 99 20 165/90 98
08/10/23 16:58 08/10/23 16:58 08/10/23 16:58 08/10/23 16:58 08/10/23 16:58
Last Documented Vital Signs
Temp Pulse Resp BP Pulse Ox
101.2 F H 97 32 169/78 97
08/10/23 19:04 08/10/23 19:04 08/10/23 19:04 08/10/23 19:04 08/10/23 19:04
MDM/Problems Addressed
MDM/Problems Addressed:
Hospital-acquired pneumonia
*Radiology
Radiology exam reviewed: preliminary read by ED provider (Left-sided pneumonia)
*Pulse Oximetry
Patient hypoxic: no
*[employer] Interpretation
Rate: normal
Interpretation: normal
Rhythm: sinus
*Critical Care Note
Total Time (30-74mins, 75-104mins- exclusive of procedures): 30 minutes
Data Reviewed
Review of Other/Old Records Reveals: Discharge Summary (Discharge summary reviewed from June)
Source: patient and spouse
Further Testing Considered But Not Given:
Consider CTA but patient clearly with pneumonia and now fever. Suspected hospital-acquired pneumonia. Admit
Patient Management
Discussion with other providers: Hospitalist
Escalation/DeEscalation of care consider admission/obs:
Currently stable. Broad-spectrum antibiotics and
ED Attending Note
-
Portions of this chart may have been created with voice recognition software.� Occasional wrong word or��sound alike� substitutions may have occurred due to the inherent limitations of voice recognition software.
Discharge Plan
Departure
Patient Disposition: Admit
Date of Disposition: 08/10/23
Time of Disposition: 19:20
Admit to: Telemetry
Presentation/result/management discussed w/ accepting MD/DO: Hospitalist
Discharge Problem:
HABP (hospital-acquired bacterial pneumonia)
Prescriptions:
No Action
rosuvastatin 20 MG tablet
20 mg PO DAILY@0600
SPS (with sorbitol) 15-20 gram/60 mL suspension
60 ml PO QPM
Novolin 70/30 U-100 Insulin 100 unit/mL (70-30) Suspension
17 - 20 sliding scale dose SC BID@0700,1700
furosemide 40 mg tablet
40 mg PO DAILY@0600
lisinopril 20 mg tablet
20 mg PO DAILY@0600
Rx Instructions:
08/10/2023, take with 10 mg for a total of 30 mg.
metoprolol succinate 100 mg tablet extended release 24 hr
100 mg PO BID@0600,1800
hydralazine 100 mg tablet
100 mg PO TID@0600,1400,2200
lisinopril 10 mg tablet
10 mg PO DAILY@0600
Rx Instructions:
08/10/2023, take with 20 mg for a total of 30 mg.
sertraline 50 mg Tablet
25 mg PO DAILY@0600
isosorbide mononitrate 30 mg tablet extended release 24 hr
30 mg PO DAILY@0600
Eliquis 5 mg Tablet
5 mg PO BID@0600,1800
Leo Back and Body 500-32.5 mg Tablet
1 tab PO BIDPRN PRN (Reason: mild pain)
Slow Fe
1 tab PO QPM
Referrals:
Victor Hugo Sparks MD [Family Provider] -
Interventions
Interventions:
*Risk Screen - Suicide Last Done: 08/10/23 17:32
*General Assessment Last Done: 08/10/23 17:03
*Neglect/Abuse Screening Last Done: 08/10/23 17:32
ED- Fall Risk Assessment Last Done: 08/10/23 17:32
*ED COVID-19 Vaccine History Last Done: 08/10/23 17:30
ED- Pulmonary Assessment Last Done: 08/10/23 19:04
Discharge Date and Time
Print Language: BRUNEIAN
[2023-08-10 20:11] VITALS: BP 178/79
[2023-08-10 20:14] LABS: Urine Albumin 3+ (Neg - Trace); Urine Bilirubin Negative (Negative); Urine Character Clear (Clear); Urine Color Yellow; Urine Glucose Negative (Negative); Urine Ketone 1+ (Negative); Urine Leukocyte Trace (Negative); Urine Nitrite Positive (Negative); Urine Occult Blood Trace (Negative); Urine Specific Gravity 1.015 (<1.030); Urine Urobilinogen Negative (Neg - 1+)
--- NOTE | 2023-08-10 20:20 | HPS.HSE ---
Family Physician
-
Family Physician: Victor Hugo Sparks
Chief Complaint
-
Cough, fever, SOB.
History of Present Illness
Patient is a 62y M with PMH significant for A-Fib, CKD and hypertension who presents to ED complaining of fever, cough, SOB, etc for three days. Patient states that his symptoms started on Tuesday with cough and sore throat. His symptoms have
steadily progressed since that time. Cough is productive of thick mucus. Pos SOB. Pos fevers / chills, headache. His was ill with cold symptoms last week - but quickly improved. With worsening symptoms, patient presented to the ED this
evening for evaluation.
Medical History
Past Medical History
Past Medical History: Reports Other
Additional Past Medical History:
Paroxysmal Atrial Fibrillation
ASCVD (CAD, PAD)
Chronic HFpEF
Hypertension
CKD III
Psoriatic Arthritis
DM-II
Dupuytren's Contractures
Past Surgical History: Reports Other
Additional Past Surgical History:
CABG x 5, MAZE, LA Clip
R Renal Biopsy (complicated by post-procedure hemorrhage)
ORIF Right Femur
Cataracts
Dupuytren's Contracture Release
Social History
Tobacco: Former Smoker (Quit smoking about 5 years ago. > 40 pack years total use.)
Alcohol: Occasional
Drug: None
Personal:
Living: With Family
Family History
Family History: Other (Father: CAD Mother: Colon Cancer)
Allergies / Home Medications
Allergies reflects when Allergies were last updated in [employer].
Home Medications with original date entered in [employer]
Allergy/Medication List:
Allergies
Allergy/AdvReac Type Severity Reaction Status Date / Time
infliximab [From Remicade] Allergy Stroke-like Verified 06/26/23 14:00
sxs with
lesion on
brain
Home Medications
rosuvastatin 20 mg tablet 20 mg PO DAILY@0600 High cholesterol 07/09/20
sodium polystyrene sulfonate 15 gram-sorbitol 20 gram/60 mL oral susp (SPS (with sorbitol)) 60 ml PO QPM CORRECT POTASSIUM 02/15/22
insulin human U-100 NPH-regulr 70-30 mix 100 unit/mL subcutaneous susp (Novolin 70/30 U-100 Insulin) 17 - 20 sliding scale dose SC BID@0700,1700 Diabetes 06/22/22
furosemide 40 mg tablet 40 mg PO DAILY@0600 Fluid Retention/Swelling 07/16/22
hydralazine 100 mg tablet 100 mg PO TID@0600,1400,2200 Blood Pressure 06/26/23
isosorbide mononitrate 30 mg tablet,extended release 24 hr 30 mg PO DAILY@0600 Blood Pressure 06/26/23
lisinopril 10 mg tablet 10 mg PO DAILY@0600 06/26/23
lisinopril 20 mg tablet 20 mg PO DAILY@0600 06/26/23
metoprolol succinate 100 mg tablet,extended release 24 hr 100 mg PO BID@0600,1800 Heart Disease/Condition 06/26/23
sertraline 50 mg tablet 25 mg PO DAILY@0600 Mental Health/Anxiety 06/26/23
Slow Fe 1 tab PO QPM 08/10/23
apixaban 5 mg tablet (Eliquis) 5 mg PO BID@0600,1800 08/10/23
aspirin-caffeine 500 mg-32.5 mg tablet (Leo Back and Body) 1 tab PO BIDPRN PRN mild pain 08/10/23
Review of Systems
-
History Source: Patient
Constitutional: Reports Fever, Fatigue and Chills
EENT: Reports Sore Throat
Respiratory: Reports Cough and Trouble Breathing; Denies Hemoptysis
Cardiac: Reports Chest Pain and Diaphoresis; Denies Palpitations or Syncope
Abdomen/GI: Denies Abdominal Pain, Nausea, Vomiting or Diarrhea
: Denies Dysuria, Frequency or Flank Pain
Musculoskeletal: Denies Joint Pain or Edema
Neurological: Reports Headache; Denies Dizzy
Psych: Denies Depression or Anxiety
Physical Exam
Vital Signs
Vital Signs
Temp Pulse Resp BP Pulse Ox
99.9 F 96 24 178/79 96
08/10/23 20:11 08/10/23 20:11 08/10/23 20:11 08/10/23 20:11 08/10/23 20:11
Physical Exam
General: Other (62y M in mild distress due to fever / cough.)
HEENT: PERRLA and Other (Dry MM.)
Respiratory: Other (Bibasilar rales. Otherwise clear. No focal rhonchi.)
Cardiac: S1/S2 and Regular Rhythm; No Murmur
GI: Soft, Non Tender, Non Distended and Normal Bowel Sounds
Musculoskeletal: No Clubbing, No Cyanosis and No Edema
Neuro: AO x 3
Laboratory Results
-
08/10/23 18:10
08/10/23 18:10
Laboratory Results
Lactic Acid Cancelled 08/10/23 22:00
Total Bilirubin 0.6 mg/dl (0.2-1.3) 08/10/23 18:10
AST 16 U/L (17-59) L 08/10/23 18:10
ALT 16 U/L (0-50) 08/10/23 18:10
Alkaline Phosphatase 84 U/L (38-126) 08/10/23 18:10
Impression/Plan
-
A/P: Patient is a 62y M with PMH significant for ASCVD, PA-Fib, HTN and DM-II who presents to ED complaining of cough, fever and SOB x 3 days.
Left Community Acquired Pneumonia
Sepsis secondary to the above
- Admit for further evaluation and treatment.
- CXR shows L mid lung opacity c/w pneumonia and consistent with patient's symptoms.
- COVID added in the ED. Negative.
- Continue IV abx to cover CAP.
- Supportive care including antipyretics, nebs, mucolytics, etc.
- Follow up culture data.
- Follow for clinical improvement.
ASCVD
- CAD and PAD. s/p CABG x 25 Jun 2022.
- Stable. Continue current CV med regimen without changes.
- Follow for any new symptoms.
Paroxysmal Atrial Fibrillation
- In NSR at present. s/p MAZE procedure 06/2022.
- Continue Eliquis for stroke risk reduction.
- Monitor on telemetry.
Chronic HFpEF
- Had episode of CHF during treatment for COVID in 2021.
- Most recent Echo (06/2022) with normal LVEF.
- Continue usual dose of Lasix for now.
- Follow I/Os, daily weights, etc.
- Not hypotensive - so avoid excessive volume resuscitation.
DM-II
- Stable. Continue insulin regimen with 70/30 mix.
- Follow glucose and cover with SSI as needed.
- Update A1C.
CKD III
- Stable. Renal function is at / near known baseline.
- Follow for any changes.
Benign Hypertension
- Stable. Continue outpatient med regimen with holding parameters to avoid hypotension.
Microcytic Anemia
- Patient's prior baseline Hgb appears to be close to 12.
- Blood loss anemia during prior admission due to perinephric hemorrhage and Hgb has not significantly improved since that time (06/2023).
- Check iron studies.
- Follow H&H for changes.
- Consider iron replacement and / or transfusion if needed.
Psoriatic Arthritis
- Stable. Not currently on any DMARD therapy.
- Prior reaction to Remicade.
- Follow for any new complaints.
DVT Prophylaxis: On Eliquis
Code Status: Full
[2023-08-10 20:27] LABS: COVID-19 Antigen Negative (Negative)
[2023-08-10 20:30] LABS: Urine Red Blood Cell 0-2 /HPF (0-2)
[2023-08-10 21:52] LABS: Glucose - Point of Care 306 mg/dl (70-99)
[2023-08-10 21:53] VITALS: BP 172/86; BMI 30.2
[2023-08-10 21:57] VITALS: BMI 30.2
[2023-08-10] MEDS: APRESOLINE 100 MG PO (22:06)
[2023-08-10] MEDS: STERILE WATER FOR INJECTION 10 ML IV (22:07)
[2023-08-10] MEDS: ROCEPHIN 1000 MG IV (22:07)
--- NOTE | 2023-08-10 22:27 | PTCARENOTE ---
Pt. arrived to unit from ED via stretcher. Pt. able to safely ambulate into room 339-2 on . Pt. AAOx3 and able to make needs known. Oriented to unit. Call honeycutt within reach. Plan of care ongoing.
[2023-08-10 22:28] LABS: Total Iron Binding Capacity 252 ug/dl (261-462)
[2023-08-10] MEDS: NOVOLOG FLEXPEN 4 UNITS SC (22:38)
[2023-08-10 22:46] LABS: Iron 24 ug/dl (49-181); Percent Saturation 9 % (20-50)
[2023-08-10 22:55] LABS: TSH Reflex To Free T4 < 0.02 uIU/ml (0.47-4.68)
[2023-08-10 23:00] VITALS: BP 134/71
[2023-08-10 23:25] LABS: Free T4 3.16 ng/dl (0.78-2.19)
[2023-08-11] VITALS (9 sets, daily range): BP systolic 111–170; BP diastolic 53–90; PULSE 106; O2SAT 96
[2023-08-11 01:33] LABS: Glucose - Point of Care 208 mg/dl (70-99)
[2023-08-11] MEDS: TYLENOL 650 MG PO ×4 (02:18→21:03)
[2023-08-11] MEDS: DUONEB 3 ML INH (02:23)
[2023-08-11 05:44] LABS: Hematocrit 25.2 % (39.0-52.0); Hemoglobin 8.4 g/dL (13.0-18.0); Mean Corp Hgb Conc. 33.3 g/dL (33.0-37.0); Mean Corpuscular Hgb 24.9 pg (27.0-31.0); Mean Corpuscular Volume 74.8 fL (80.0-94.0); Mean Platelet Volume 9.7 fL (7.4-10.4); Platelet Count 256 10^3/uL (130-400); Red Blood Cell Count 3.37 10^6/uL (4.70-6.10); Red Cell Dist. Width 14.8 % (11.5-14.5); White Blood Cell Count 11.9 10^3/uL (4.8-10.8)
[2023-08-11] MEDS: CRESTOR 20 MG PO (05:55)
[2023-08-11] MEDS: APRESOLINE 100 MG PO ×3 (05:55→21:03)
[2023-08-11] MEDS: ELIQUIS 5 MG PO ×2 (05:56→17:25)
[2023-08-11] MEDS: IMDUR (EXTENDED RELEASE) 30 MG PO (05:56)
[2023-08-11] MEDS: TOPROL XL 100 MG PO ×2 (05:57→17:25)
[2023-08-11] MEDS: LASIX 40 MG PO (05:57)
[2023-08-11] MEDS: ZESTRIL 30 MG PO (05:57)
[2023-08-11] MEDS: ZOLOFT 25 MG PO (05:57)
[2023-08-11 06:11] LABS: ALT (SGPT) 13 U/L (0-50); AST (SGOT) 14 U/L (17-59); Albumin 3.4 g/dl (3.5-5.0); Alkaline Phosphatase 79 U/L (38-126); Blood Urea Nitrogen 39 mg/dl (9-20); Carbon Dioxide 22 mmol/L (22-30); Chloride 102 mmol/L (98-107); Direct Bilirubin 0.3 mg/dl (0.0-0.4); Estimated Creatinine Clearance 40 ml/min; Glucose 204 mg/dl (70-99); Potassium 4.6 mmol/L (3.5-5.1); Sodium 134 mmol/L (135-145); Total Bilirubin 0.5 mg/dl (0.2-1.3); Total Protein 5.8 g/dl (6.3-8.2); eGFR 33.04
[2023-08-11 07:36] LABS: Glucose - Point of Care 192 mg/dl (70-99)
[2023-08-11] MEDS: VIBRAMYCIN 100 MG PO ×2 (08:13→21:02)
[2023-08-11] MEDS: MUCINEX 1200 MG PO ×2 (08:13→21:02)
[2023-08-11] MEDS: NOVOLOG FLEXPEN-LOW RESISTANCE 1 UNITS SC (08:14)
--- NOTE | 2023-08-11 08:37 | W.PN.HOSP.TC ---
Today's Communication/Plan
-
see bold
Assessment / Plan
Assessment / Plan
HPI: 62y M with PMH significant for A-Fib, CKD and hypertension who presents to ED complaining of fever, cough, SOB, etc for three days.
Left Community Acquired Pneumonia
Sepsis secondary to the above
- CXR shows L mid lung opacity c/w pneumonia and consistent with patient's symptoms.
- COVID-negative, check urine Legionella antigen, strep antigen
- Continue IV Rocephin and doxycycline D2, trend fever and white count
- Changed bronchodilators to ipratropium and Xopenex to avoid tachycardia with history of atrial fibrillation
Iron deficiency anemia
- Patient's prior baseline Hgb appears to be close to 12.
- Blood loss anemia during prior admission due to perinephric hemorrhage and Hgb has not significantly improved since that time (06/2023).
- Iron studies consistent with iron deficiency anemia
- Would avoid IV iron during active infection, continue oral iron supplement, trend Hgb
ASCVD
- CAD and PAD. s/p CABG x 25 Jun 2022.
- Continue Eliquis, Imdur, statin
Paroxysmal Atrial Fibrillation
- In NSR at present. s/p MAZE procedure 06/2022.
- Continue Eliquis and metoprolol succinate 100 mg twice a day
Chronic HFpEF
- Had episode of CHF during treatment for COVID in 2021.
- Most recent Echo (06/2022) with normal LVEF.
- Continue usual dose of Lasix for now.
DM-II
- Hemoglobin A1c 6.3, continue previous home insulin regimen 70/30, sliding scale insulin
CKD III
- Stable. Renal function is at / near known baseline.
Benign Hypertension
- Continue lisinopril, hydralazine, Imdur
Psoriatic Arthritis
- Stable. Not currently on any DMARD therapy.
- Prior reaction to Remicade.
DVT Prophylaxis: On Eliquis
Code Status: Full
Total time spent to see the patient on the floor, examine the patient, review data and lab results, discuss treatment plan with patient, nursing staff around 51 minutes.
Physical Exam
General: Appears to not feel well, no acute distress
HEENT: Normocephalic, Atraumatic, EOMI, MMM
Respiratory: Bibasilar crackles
Cardiac: Normal S1/S2, tachycardic rate
GI: Soft, Nontender, Nondistended, Normal Bowel Sounds
Extremities: No Clubbing, Cyanosis, or Edema
Neuro: Nonfocal/Grossly Intact
Psych: Calm, Cooperative
Derm: No Visible lesions
Anticipated Discharge: 24 - 48 hours
Subjective/Interval History
-
Date of Service: August 11, 2023
Patient initially felt better, however his breathing is worse this morning. No fever, no vomiting.
Objective Data
-
Labs:
Laboratory Results
08/11/23
05:18
WBC 11.9 H
Hgb 8.4 L
Hct 25.2 L
Plt Count 256
Sodium 134 L
Potassium 4.6
Chloride 102
Carbon Dioxide 22
BUN 39 H
Creatinine 2.2 H
Glucose 204 H
Calcium 9.0
Total Bilirubin 0.5
AST 14 L
ALT 13
Alkaline Phosphatase 79
Vital Signs:
Vital Signs
Temp Pulse Resp BP Pulse Ox
98.8 F 102 20 144/75 96
08/11/23 07:00 08/11/23 07:00 08/11/23 07:00 08/11/23 07:00 08/11/23 08:31
[2023-08-11] MEDS: XOPENEX 1.25 MG INHALANT SOLUTION INH ×3 (09:40→21:21)
[2023-08-11] MEDS: ATROVENT NEBULES 0.5 MG INH ×2 (09:40→13:38)
[2023-08-11 09:50] LABS: Glycohemoglobin (HgbA1c) 6.3 % (4.0-5.6)
--- NOTE | 2023-08-11 11:36 | PTOTSP ---
Pt is feeling better today. He is not on O2. He is independent with ambulation without need for any assistive devices. No PT needs were identified. Will sign off.
[2023-08-11 12:09] LABS: Glucose - Point of Care 325 mg/dl (70-99)
[2023-08-11] MEDS: NOVOLOG FLEXPEN-LOW RESISTANCE 4 UNITS SC (12:11)
--- NOTE | 2023-08-11 15:58 | CM ---
Alert awake oriented patient who lives with his Alisha who lives in a 1 story home with 1 step to enter and bed and bathroom on first floor .He is independent in driving and in all activities of daily living.He was offered VN he declined need.No
DME.
No VN hx / No SNF history
[facility]
PCP DR Sparks
PLAN Home Declined VN
[2023-08-11] MEDS: FEOSOL 325 MG PO (16:21)
[2023-08-11] MEDS: NORVASC 5 MG PO ×2 (16:22→21:03)
[2023-08-11 16:46] LABS: Glucose - Point of Care 266 mg/dl (70-99)
[2023-08-11] MEDS: NOVOLOG FLEXPEN-LOW RESISTANCE 3 UNITS SC (17:26)
[2023-08-11] MEDS: NOVOLOG MIX 70/30 FLEXPEN 14 UNITS SC (17:26)
[2023-08-11 18:49] LABS: Hepatitis C Antibody Negative (Negative)
[2023-08-11] MEDS: ROCEPHIN 1000 MG IV (21:02)
[2023-08-11] MEDS: STERILE WATER FOR INJECTION 10 ML IV (21:02)
[2023-08-11 21:44] LABS: Glucose - Point of Care 197 mg/dl (70-99)
[2023-08-11] MEDS: MELATONIN 5 MG PO (22:12)
[2023-08-12 03:40] VITALS: BP 156/93
--- NOTE | 2023-08-12 05:27 | W.PN.HOSP.TC ---
Today's Communication/Plan
-
Discontinue ceftriaxone and cont doxycycline for total 5 days abx
Thyroid US
bronchodilators prn
possible discharge home tomorrow if remains stable/continues to improve
Assessment / Plan
Assessment / Plan
HPI: 62y M with PMH significant for A-Fib, CKD and hypertension who presents to ED complaining of fever, cough, SOB, etc for three days.
Left Community Acquired Pneumonia
Sepsis secondary to the above
- CXR shows L mid lung opacity c/w pneumonia and consistent with patient's symptoms.
- COVID-negative, check urine Legionella antigen, strep antigen
- IV Rocephin discontinued, cont doxycycline plan for total 5 days abx
- cont prn ipratropium and Xopenex, Avoiding Albuterol d/t tachycardia with history of atrial fibrillation
Iron deficiency anemia
- Patient's prior baseline Hgb appears to be close to 12.
- Blood loss anemia during prior admission due to perinephric hemorrhage and Hgb has not significantly improved since that time (06/2023).
- Iron studies consistent with iron deficiency anemia
- Would avoid IV iron during active infection, continue oral iron supplement,
- Hgb appears stable at this time trending up
- outpt hematology follow up recommended.
ASCVD
- CAD and PAD. s/p CABG x 25 Jun 2022.
- Continue Eliquis, Imdur, statin
Paroxysmal Atrial Fibrillation
- In NSR at present. s/p MAZE procedure 06/2022.
- Continue Eliquis and metoprolol succinate 100 mg twice a day
Chronic HFpEF
- Had episode of CHF during treatment for COVID in 2021.
- Most recent Echo (06/2022) with normal LVEF.
- Continue usual dose of Lasix for now.
DM-II
- Hemoglobin A1c 6.3, continue previous home insulin regimen 70/30, sliding scale insulin
CKD III
- Stable Cr 2.2-2.1
-monitor
Benign Hypertension
- Continue home lisinopril, hydralazine, Imdur
Psoriatic Arthritis
- Stable. Not currently on any DMARD therapy.
- Prior reaction to Remicade.
Hyperthyroidism
-TSH suppressed, free T4 elevated
-checking Thyroid US
-appears relatively asymptomatic for hyperthyroidism, in NSR though intermittent mild tachycardia
-Discussed with Endocrine who recommended outpatient follow up for further work up and potential start Methimazole.
DVT Prophylaxis: On Eliquis
Code Status: Full
discussed with patient and patient's Alisha at bedside.
Total time spent to see the patient on the floor, examine the patient, review data and lab results, discuss treatment plan with patient, nursing staff around 52 minutes.
Physical Exam
General: Appears to not feel well, no acute distress
HEENT: Normocephalic, Atraumatic, EOMI, MMM, thyroid palpated does not appear excessively large or nodular
Respiratory: rhonchi b/l
Cardiac: S1/S2, NSR
GI: Soft, Nontender, Nondistended, Normal Bowel Sounds
Extremities: No Clubbing, Cyanosis, or Edema
Neuro: Nonfocal/Grossly Intact
Psych: Calm, Cooperative
Derm: No Visible lesions
Anticipated Discharge: 24 - 48 hours
Subjective/Interval History
-
Date of Service: August 12, 2023
Objective Data
-
Labs:
Laboratory Results
08/12/23
05:09
WBC Pending
Hgb Pending
Hct Pending
Plt Count Pending
Sodium Pending
Potassium Pending
Chloride Pending
Carbon Dioxide Pending
BUN Pending
Creatinine Pending
Glucose Pending
Calcium Pending
Vital Signs:
Vital Signs
Temp Pulse Resp BP Pulse Ox
98.7 F 100 18 156/93 98
08/12/23 03:40 08/12/23 03:40 08/12/23 03:40 08/12/23 03:40 08/12/23 03:40
I&O
08/10/23 08/11/23 08/12/23
06:59 06:59 06:59
Intake Total 960 / 960
Balance 960 / 960
[2023-08-12 05:38] LABS: Hematocrit 26.5 % (39.0-52.0); Hemoglobin 8.7 g/dL (13.0-18.0); Mean Corp Hgb Conc. 32.8 g/dL (33.0-37.0); Mean Corpuscular Hgb 24.6 pg (27.0-31.0); Mean Corpuscular Volume 75.1 fL (80.0-94.0); Mean Platelet Volume 10.2 fL (7.4-10.4); Platelet Count 290 10^3/uL (130-400); Red Blood Cell Count 3.53 10^6/uL (4.70-6.10); Red Cell Dist. Width 14.8 % (11.5-14.5); White Blood Cell Count 11.8 10^3/uL (4.8-10.8)
[2023-08-12] MEDS: IMDUR (EXTENDED RELEASE) 30 MG PO (05:52)
[2023-08-12] MEDS: CRESTOR 20 MG PO (05:52)
[2023-08-12] MEDS: ZESTRIL 30 MG PO (05:53)
[2023-08-12] MEDS: APRESOLINE 100 MG PO ×3 (05:53→21:02)
[2023-08-12] MEDS: ZOLOFT 25 MG PO (05:53)
[2023-08-12] MEDS: LASIX 40 MG PO (05:53)
[2023-08-12] MEDS: TOPROL XL 100 MG PO ×2 (05:53→17:17)
[2023-08-12] MEDS: ELIQUIS 5 MG PO ×2 (05:53→17:17)
[2023-08-12] MEDS: TYLENOL 650 MG PO ×2 (05:54→17:18)
[2023-08-12 05:56] LABS: Blood Urea Nitrogen 39 mg/dl (9-20); Calcium 9.4 mg/dl (8.4-10.2); Carbon Dioxide 21 mmol/L (22-30); Chloride 103 mmol/L (98-107); Estimated Creatinine Clearance 42 ml/min; Glucose 169 mg/dl (70-99); Magnesium 1.8 mg/dl (1.6-2.3); Phosphorus 4.7 mg/dl (2.5-4.5); Potassium 4.7 mmol/L (3.5-5.1); Sodium 135 mmol/L (135-145); eGFR 34.93
[2023-08-12 06:00] VITALS: BMI 29.7
[2023-08-12 07:00] VITALS: BP 104/46
[2023-08-12 07:06] LABS: Glucose - Point of Care 219 mg/dl (70-99)
[2023-08-12] MEDS: NOVOLOG FLEXPEN-LOW RESISTANCE 2 UNITS SC ×2 (07:07→17:18)
[2023-08-12] MEDS: NOVOLOG MIX 70/30 FLEXPEN 14 UNITS SC ×2 (07:08→17:18)
[2023-08-12] MEDS: VIBRAMYCIN 100 MG PO ×2 (07:10→20:20)
[2023-08-12] MEDS: FEOSOL 325 MG PO (07:10)
[2023-08-12] MEDS: NORVASC 5 MG PO ×2 (07:10→20:20)
[2023-08-12] MEDS: MUCINEX 1200 MG PO ×2 (07:10→20:19)
[2023-08-12 11:00] VITALS: BP 150/74
[2023-08-12 11:27] LABS: Glucose - Point of Care 251 mg/dl (70-99)
[2023-08-12] MEDS: NOVOLOG FLEXPEN-LOW RESISTANCE 3 UNITS SC (11:38)
[2023-08-12 13:00] LABS: TSH Reflex To Free T4 < 0.02 uIU/ml (0.47-4.68)
[2023-08-12 15:00] VITALS: BP 149/79
[2023-08-12 15:31] LABS: Vitamin B12 390 pg/ml (239-931)
[2023-08-12] MEDS: XOPENEX 1.25 MG INHALANT SOLUTION INH (16:00)
--- NOTE | 2023-08-12 16:35 | CM ---
Spoke with patient in room .
He said that his Alisha will drive him home.
Offered VN he declined need.
PLAN Home no needs
[2023-08-12 17:17] LABS: Glucose - Point of Care 204 mg/dl (70-99)
[2023-08-12 19:26] VITALS: BP 156/78
[2023-08-12] MEDS: MELATONIN 5 MG PO (21:02)
[2023-08-12 21:08] LABS: Glucose - Point of Care 198 mg/dl (70-99)
[2023-08-12 23:55] VITALS: BP 145/75
[2023-08-13 03:55] VITALS: BP 152/79
[2023-08-13] MEDS: APRESOLINE 100 MG PO (05:40)
[2023-08-13] MEDS: TOPROL XL 100 MG PO (05:41)
[2023-08-13] MEDS: ELIQUIS 5 MG PO (05:41)
[2023-08-13] MEDS: CRESTOR 20 MG PO (05:41)
[2023-08-13] MEDS: IMDUR (EXTENDED RELEASE) 30 MG PO (05:41)
[2023-08-13] MEDS: ZOLOFT 25 MG PO (05:41)
[2023-08-13] MEDS: LASIX 40 MG PO (05:41)
[2023-08-13] MEDS: ZESTRIL 30 MG PO (05:42)
[2023-08-13 06:00] VITALS: BMI 29.7
[2023-08-13 07:00] VITALS: BP 133/70
[2023-08-13 07:43] LABS: Glucose - Point of Care 215 mg/dl (70-99)
[2023-08-13] MEDS: FEOSOL 325 MG PO (07:44)
[2023-08-13] MEDS: MUCINEX 1200 MG PO (07:44)
[2023-08-13] MEDS: NORVASC 5 MG PO (07:45)
[2023-08-13 07:47] LABS: Hematocrit 28.7 % (39.0-52.0); Hemoglobin 9.2 g/dL (13.0-18.0); Mean Corp Hgb Conc. 32.1 g/dL (33.0-37.0); Mean Corpuscular Hgb 24.1 pg (27.0-31.0); Mean Corpuscular Volume 75.3 fL (80.0-94.0); Mean Platelet Volume 10.1 fL (7.4-10.4); Platelet Count 333 10^3/uL (130-400); Red Blood Cell Count 3.81 10^6/uL (4.70-6.10); Red Cell Dist. Width 14.8 % (11.5-14.5); White Blood Cell Count 9.5 10^3/uL (4.8-10.8)
[2023-08-13 08:12] LABS: Blood Urea Nitrogen 44 mg/dl (9-20); Calcium 9.7 mg/dl (8.4-10.2); Carbon Dioxide 22 mmol/L (22-30); Chloride 100 mmol/L (98-107); Estimated Creatinine Clearance 38 ml/min; Glucose 179 mg/dl (70-99); Potassium 4.8 mmol/L (3.5-5.1); Sodium 135 mmol/L (135-145); eGFR 34.93
[2023-08-13] MEDS: NOVOLOG FLEXPEN-LOW RESISTANCE 2 UNITS SC (08:22)
[2023-08-13] MEDS: NOVOLOG MIX 70/30 FLEXPEN 14 UNITS SC (08:22)
[2023-08-13] MEDS: TYLENOL 650 MG PO (08:28)
[2023-08-13] MEDS: VIBRAMYCIN 100 MG PO (08:28)
--- NOTE | 2023-08-13 09:02 | W.PN.HOSP.TC ---
Addendum entered and electronically signed by Chucky Junior MD 08/13/23 15:48:
He was also started on amlodipine 5 mg twice a day on 08/11/2023 for elevated blood pressure. Will continue this upon discharge, prescription provided.
Original Note:
Today's Communication/Plan
-
Discharge today
Assessment / Plan
Assessment / Plan
HPI: 62y M with PMH significant for A-Fib, CKD and hypertension who presents to ED complaining of fever, cough, SOB, etc for three days.
Left Community Acquired Pneumonia
Sepsis secondary to the above
- CXR shows L mid lung opacity c/w pneumonia and consistent with patient's symptoms.
- COVID-negative, check urine Legionella antigen, strep antigen
- IV Rocephin discontinued, cont doxycycline plan for total 5 days abx
- cont prn ipratropium and Xopenex, Avoiding Albuterol d/t tachycardia with history of atrial fibrillation
- Medically stable for discharge, follow-up with his PCP in 1 week
Hyperthyroidism
-TSH suppressed <0.02, free T4 elevated at 3.10
-Thyroid ultrasound ordered, patient prefers to get it done outpatient with his primary care doctor
-He is currently being treated for pneumonia, recommend repeat thyroid function tests in 4-6 weeks
-Follow-up with endocrinology as needed
Iron deficiency anemia
- Patient's prior baseline Hgb appears to be close to 12.
- Blood loss anemia during prior admission due to perinephric hemorrhage and Hgb has not significantly improved since that time (06/2023).
- Iron studies consistent with iron deficiency anemia
- Would avoid IV iron during active infection, continue oral iron supplement
- Hgb appears stable at this time trending up
- outpt hematology follow up recommended.
ASCVD
- CAD and PAD. s/p CABG x 25 Jun 2022.
- Continue Eliquis, Imdur, statin
Paroxysmal Atrial Fibrillation
- In NSR at present. s/p MAZE procedure 06/2022.
- Continue Eliquis and metoprolol succinate 100 mg twice a day
Chronic HFpEF
- Had episode of CHF during treatment for COVID in 2021.
- Most recent Echo (06/2022) with normal LVEF.
- Continue usual dose of Lasix for now.
DM-II
- Hemoglobin A1c 6.3, continue previous home insulin regimen 70/30, sliding scale insulin
CKD III
- Stable Cr 2.2-2.1
-monitor
Benign Hypertension
- Continue home lisinopril, hydralazine, Imdur
Psoriatic Arthritis
- Stable. Not currently on any DMARD therapy.
- Prior reaction to Remicade.
DVT Prophylaxis: On Eliquis
Code Status: Full
Discussed with patient and patient's Alisha at bedside 08/12
Physical Exam
General: Appears to not feel well, no acute distress
HEENT: Normocephalic, Atraumatic, EOMI, MMM, thyroid palpated does not appear excessively large or nodular
Respiratory: rhonchi b/l
Cardiac: S1/S2, NSR
GI: Soft, Nontender, Nondistended, Normal Bowel Sounds
Extremities: No Clubbing, Cyanosis, or Edema
Neuro: Nonfocal/Grossly Intact
Psych: Calm, Cooperative
Derm: No Visible lesions
Anticipated Discharge: Today
Subjective/Interval History
-
Date of Service: August 13, 2023
Patient reports his breathing is back to baseline. No fever, no chest pain. No shortness of breath. He is eager for discharge today.
Objective Data
-
Labs:
Laboratory Results
08/13/23
07:18
WBC 9.5
Hgb 9.2 L
Hct 28.7 L
Plt Count 333
Sodium 135
Potassium 4.8
Chloride 100
Carbon Dioxide 22
BUN 44 H
Creatinine 2.1 H
Glucose 179 H
Calcium 9.7
Vital Signs:
Vital Signs
Temp Pulse Resp BP Pulse Ox
98.1 F 83 16 133/70 97
08/13/23 07:00 08/13/23 07:00 08/13/23 07:00 08/13/23 07:00 08/13/23 07:00
I&O
08/12/23 08/13/23 08/14/23
06:59 06:59 06:59
Intake Total 1080 / 1080 960 / 960
Balance 1080 / 1080 960 / 960
--- NOTE | 2023-08-13 10:46 | W.DCSUMMARY ---
Discharge Summary
Discharge Data
Date of Admission: 08/10/23
Date of Discharge: 08/13/23
-
Pending Results: No
Hospital Course
Discharge diagnosis:
Sepsis
Community-acquired pneumonia
Elevated free T4, suppressed thyroid-stimulating hormone concerning for possible hyperthyroidism
Benign essential hypertension
Iron deficiency anemia
Coronary artery disease
Paroxysmal atrial fibrillation on Eliquis
Chronic heart failure
Type 2 diabetes
Stage III chronic kidney disease
Psoriatic arthritis
Chest x-ray:
New left perihilar and lingular pneumonia
Hospital course:
62-year-old male with a past medical history of stage III CKD, CHF, paroxysmal atrial fibrillation on Eliquis, CAD, iron deficiency anemia, type 2 diabetes, and hypertension presented with cough, shortness of breath, and fever. Patient was found to
have sepsis secondary to community-acquired pneumonia. Patient was treated with Rocephin and doxycycline. He was COVID-negative, blood cultures were negative.
Patient was found to have uncontrolled hypertension despite being continued on his home blood pressure medications. Amlodipine 5 mg twice a day was added, his blood pressure improved. He will be continued on this upon discharge.
Patient also had an elevated free T4 of 3.10, suppressed TSH of less than 0.02. Since he is currently being treated for sepsis secondary to pneumonia, recommend he has repeat thyroid function test in 4-6 weeks. Also recommend he gets a thyroid
ultrasound outpatient, this can be done with his primary care doctor.
After several days, patient's shortness of breath resolved. His breathing returned to baseline. He is medically stable for discharge on doxycycline to complete a 5-day course.
Disposition: Home self-care
Discharge planning: Required 40 minutes
Discharge Plan
-
Patient Disposition: Home (Routine Discharge)
Discharge Diagnosis/Procedures: Pneumonia, iron deficiency anemia, atrial fibrillation, elevated thyroid hormone concerning for possible hyperthyroidism, chronic kidney disease,
Condition: Good
Diet: Low Fat, Low Cholesterol and Diabetic, Carb Controlled
Activity: As tolerated
Driving Restrictions: As prior to admission
Activity Restrictions/Additional Instructions:
Your blood pressure was elevated, you were started on amlodipine 5 mg twice a day.
Your active thyroid hormone was elevated.
Recommend repeat thyroid function tests in 4-6 weeks, and outpatient thyroid ultrasound with your primary care doctor.
Follow up with primary care provider in 1 week of discharge. Follow-up with endocrinology as needed, hematology in 2-4 weeks of discharge.
Referrals:
Aquiles Fraire DO [Active] - in two to four weeks
Alva Cordero MD [Consulting Staff] - in one week
Victor Hugo Sparks MD [Family Provider] - in one week
Prescriptions:
New
doxycycline hyclate 100 mg Capsule
100 mg PO Q12 3 Days Qty: 6 0RF
amlodipine 5 mg Tablet
5 mg PO BID Qty: 60 0RF
guaifenesin 600 mg Tablet Extended Release 12hr
1,200 mg PO Q12 Qty: 10 0RF
Continued
rosuvastatin 20 MG tablet
20 mg PO DAILY@0600
SPS (with sorbitol) 15-20 gram/60 mL suspension
60 ml PO QPM
Novolin 70/30 U-100 Insulin 100 unit/mL (70-30) Suspension
17 - 20 sliding scale dose SC BID@0700,1700
furosemide 40 mg tablet
40 mg PO DAILY@0600
lisinopril 20 mg tablet
20 mg PO DAILY@0600
Rx Instructions:
08/10/2023, take with 10 mg for a total of 30 mg.
metoprolol succinate 100 mg tablet extended release 24 hr
100 mg PO BID@0600,1800
hydralazine 100 mg tablet
100 mg PO TID@0600,1400,2200
lisinopril 10 mg tablet
10 mg PO DAILY@0600
Rx Instructions:
08/10/2023, take with 20 mg for a total of 30 mg.
sertraline 50 mg Tablet
25 mg PO DAILY@0600
isosorbide mononitrate 30 mg tablet extended release 24 hr
30 mg PO DAILY@0600
Eliquis 5 mg Tablet
5 mg PO BID@0600,1800
Leo Back and Body 500-32.5 mg Tablet
1 tab PO BIDPRN PRN (Reason: mild pain)
Slow Fe
1 tab PO QPM
Discharge Orders:
Discharge Patient (As Directed); Ordered 08/13/23
Ordered By: Chucky Junior
Discharge Date and Time
Discharge Date/Time: 08/13/23 11:30
Print Language: MACEDONIAN
--- NOTE | 2023-08-13 10:56 | CM ---
PLAN: Discharge to home today; no needs; will transport home
== END 2023-08-13 11:30 | disposition home or self-care (01) | DRG 871 ==
LOC: 3 WEST ACU 20:56
PROVIDERS: Internal Medicine; ADMITTING PHYSICIAN Hospitalist; ATTENDING PHYSICIAN Family Medicine; EMERGENCY PHYSICIAN Emergency Medicine; FAMILY PHYSICIAN Internal Medicine
DX: A41.9 Sepsis, unspecified organism (principal); J15.9 Unspecified bacterial pneumonia; I13.0 Hypertensive heart and chronic kidney disease with heart failure and stage 1 through stage 4 chronic kidney disease, or unspecified chronic kidney disease; I50.32 Chronic diastolic (congestive) heart failure; E78.00 Pure hypercholesterolemia, unspecified; Y95 Nosocomial condition; E11.22 Type 2 diabetes mellitus with diabetic chronic kidney disease; N18.30 Chronic kidney disease, stage 3 unspecified; I48.0 Paroxysmal atrial fibrillation; I25.10 Atherosclerotic heart disease of native coronary artery without angina pectoris; E11.51 Type 2 diabetes mellitus with diabetic peripheral angiopathy without gangrene; D50.9 Iron deficiency anemia, unspecified; E05.90 Thyrotoxicosis, unspecified without thyrotoxic crisis or storm; L40.50 Arthropathic psoriasis, unspecified; M72.0 Palmar fascial fibromatosis [Dupuytren]; Z86.16 Personal history of COVID-19; Z79.01 Long term (current) use of anticoagulants; Z79.4 Long term (current) use of insulin; Z95.1 Presence of aortocoronary bypass graft; Z88.8 Allergy status to other drugs, medicaments and biological substances; Z11.52 Encounter for screening for COVID-19
CPT/HCPCS: 71046; 80048; 80053; 81003; 81015; 82248; 82607; 82746; 82962; 83036; 83540; 83550; 83605; 83735; 84100; 84439; 84443; 85025; 85027; 86803; 86850; 86900; 86901; 87040; 87086; 87811; 93005; 94640; 96365; 96366; 96367; 97162; 97165; 99291

== ENCOUNTER → 2023-10-13 14:37 | Outpatient (REF) | payer OTHER, SELFPAY | LOC: HWRCS 14:37 | PROVIDERS: ATTENDING PHYSICIAN Internal Medicine Cardiovascular Disease; FAMILY PHYSICIAN Internal Medicine | DX: I50.32 Chronic diastolic (congestive) heart failure (principal) | CPT/HCPCS: 93306 ==

== ENCOUNTER → 2023-11-25 14:44 | Outpatient (REF) | payer OTHER, SELFPAY | LOC: RAD 14:44 | PROVIDERS: ATTENDING PHYSICIAN Internal Medicine | DX: E05.90 Thyrotoxicosis, unspecified without thyrotoxic crisis or storm (principal) | CPT/HCPCS: 76536 ==

== ENCOUNTER → 2024-04-24 10:34 | Outpatient (REF) | payer OTHER, SELFPAY | LOC: RAD 10:34 | PROVIDERS: ATTENDING PHYSICIAN Internal Medicine | DX: M25.519 Pain in unspecified shoulder (principal) | CPT/HCPCS: 73030 ==

== ENCOUNTER 2024-05-16 13:50 | Outpatient (RCR) | payer OTHER, SELFPAY | END 2024-05-16 23:59 | disposition home or self-care (01) | LOC: RPT 13:50 | PROVIDERS: ATTENDING PHYSICIAN Internal Medicine | DX: M25.511 Pain in right shoulder (principal); Z73.6 Limitation of activities due to disability; M62.81 Muscle weakness (generalized) | CPT/HCPCS: 97110; 97112; 97161; 97530 ==

== ENCOUNTER 2024-06-20 08:50 | Outpatient (RCR) | payer OTHER, SELFPAY | END 2024-06-20 23:59 | disposition home or self-care (01) | LOC: RPT 08:50 | PROVIDERS: ATTENDING PHYSICIAN Internal Medicine | DX: M25.511 Pain in right shoulder (principal); Z73.6 Limitation of activities due to disability; M62.81 Muscle weakness (generalized) | CPT/HCPCS: 97110; 97112; 97140; 97530 ==

== ENCOUNTER 2024-06-22 09:05 | Outpatient (RCR) | payer OTHER, SELFPAY | END 2024-07-10 11:30 | disposition home or self-care (01) | LOC: RPT 09:05 | PROVIDERS: ATTENDING PHYSICIAN Internal Medicine | DX: M25.511 Pain in right shoulder (principal); M62.81 Muscle weakness (generalized); Z73.6 Limitation of activities due to disability | CPT/HCPCS: 97112; 97530 ==

== ENCOUNTER → 2025-02-18 18:56 | Outpatient (REF) | payer OTHER, SELFPAY | LOC: MRI 3T 18:56 | PROVIDERS: ATTENDING PHYSICIAN Student in an Organized Health Care Education/Training Program | DX: R97.20 Elevated prostate specific antigen [PSA] (principal) | CPT/HCPCS: 72197; A9575 ==